=== PATIENT | male | born 1985 | race Caucasian/White ===

== ENCOUNTER 2023-01-23 09:29 | Emergency (ER) | payer OTHER, SELFPAY ==
--- NOTE | ~2023-01-23 | XR_ITS ---
EXAMINATION: XR CHEST CLINICAL INFORMATION: Chest pain. COMPARISON: None available. TECHNIQUE: 2 views of the chest were obtained. FINDINGS: The lungs are well expanded. No focal consolidation. No pleural effusion. Cardiac silhouette is within normal limits. XR/XR chest 2V IMPRESSION: No acute abnormality.
--- NOTE | 2023-01-23 09:30 | ECG_ITS ---
Test Reason : CHEST PAIN Blood Pressure : / mmHG Vent. Rate : 086 BPM Atrial Rate : 086 BPM P-R Int : 140 ms QRS Dur : 088 ms QT Int : 368 ms P-R-T Axes : 072 057 063 degrees QTc Int : 440 ms Normal sinus rhythm Normal ECG No previous ECGs available Referred By: Generic ED Physician Electronically Signed By:Huang Zurita
[2023-01-23 09:45] VITALS: BP 128/85; PULSE 87; RESP 18; TEMP 36.4; O2SAT 96; BMI 23.4
[2023-01-23 09:58] LABS: MANUAL DIFF FLAG NO
[2023-01-23 10:02] LABS: Basophils Absolute Auto 0.1 X10*3/uL (0.0-0.2); Basophils Percent Auto 0.8 % (0-2); Eosinophils Absolute Auto 0.3 X10*3/uL (0.0-0.4); Hematocrit 46.1 % (42.0-52.0); Hemoglobin 15.6 g/dl (14.0-18.0); Imm Gran Abs Auto 0.03 X10*3/uL (0.00-0.03); Imm Gran Pct Auto 0.5 % (0.0-0.4); Lymphocytes Percent Auto 30.6 % (20-40); Mean Corpuscular HGB Conc 33.8 g/dl (31.0-36.0); Mean Corpuscular Hemoglobin 30.1 pg (27.0-33.0); Mean Corpuscular Volume 88.8 fL (80.0-98.0); Mean Platelet Volume 9.3 fL (9.4-12.4); Monocytes Absolute Auto 0.6 X10*3/uL (0.1-1.2); Monocytes Percent Auto 8.8 % (2-11); Neutrophils Absolute Auto 3.6 x10*3/uL (2.0-8.3); Neutrophils Percent Auto 55.3 % (45-73); Platelet Count 242 X10*3/uL (160-400); Red Blood Count 5.19 X10*6/uL (4.60-5.80); Red Cell Distribution Width 11.8 % (11.0-16.0); White Blood Count 6.6 X10*3/uL (4.8-10.8)
[2023-01-23 10:19] LABS: Alanine Aminotransferase 40 U/L (0-40); Albumin Level 4.4 g/dL (3.5-5.0); Alkaline Phosphatase 61 U/L (39-117); Anion Gap 13 (12-20); Aspartate Amino Transferase 25 U/L (5-37); Bilirubin Direct 0.2 mg/dL (0.0-0.5); Bilirubin Total 0.8 mg/dL (0.0-1.0); Blood Urea Nitrogen 10 mg/dL (9-16); Calcium 9.4 mg/dL (8.4-10.2); Carbon Dioxide 29 mmol/L (22-29); Chloride 103 mmol/L (96-108); Creatinine Clr Calc Pharmacy 98.6; Estimated Glomerular Filt Rate > 60; Glucose Random 91 mg/dL (60-115); Lipase 24 U/L (8-78); Potassium 4.4 mmol/L (3.3-5.1); Sodium 141 mmol/L (135-145); Total Protein 7.3 g/dL (6.5-8.0)
[2023-01-23 10:33] LABS: Troponin-I High Sensitivity < 2.7 ng/L (<3.5-35.0)
--- NOTE | 2023-01-23 10:45 | ED.CHESTPAIN ---
HPI - Chest Pain General Chief Complaint: Chest Pain Stated Complaint: Chest pain Time Seen by Provider: 01/23/23 10:30 Source: patient Mode of arrival: ambulatory Limitations: no limitations History of Present Illness HPI narrative: 37-year-old male came in for evaluation of lower chest/epigastric pain started since 01:00 on Monday (2 days ago) patient woke up from sleep due to severe pain, pain is localized to the lower chest with no radiation, no other associated symptoms with pain, no clear aggravating factor or relieving factors, no recent travel, no lower extremity swelling or tenderness, no recent prolonged immobilization. Patient admits to drinking alcohol 3 to 4 times a week and patient drink before the pain started thinks could be acid reflux. Related Data Allergies Allergy/AdvReac Type Severity Reaction Status Date / Time No Known Allergies Allergy Verified 01/23/23 09:47 Review of Systems Review of Systems: All other systems are reviewed and are negative Constitutional: Reports as per HPI and Reports no additional constitutional complaints Eyes: Reports as per HPI and Reports no additional eye complaints Reports system reviewed and no additional complaints, except as documented Cardiovascular: Reports as per HPI and Reports no additional cardiovascular complaints Respiratory: Reports as per HPI and Reports no additional respiratory complaints Gastrointestinal: Reports as per HPI and Reports no additional gastrointestinal complaints Genitourinary: Reports no additional female genitourinary complaints Musculoskeletal: Reports no additional musculoskeletal complaints Skin/Breast: Reports system reviewed and no additional complaints, except as docu Psychiatric: Reports no additional psychiatric complaints Endocrine: Reports no additional endocrine complaints Hematologic/Lymphatic: Reports no additional hematologic/lymphatic complaints Allergic/Immunologic: Reports no additional allergic/immunologic complaints Reports system reviewed and no additional complaints, except as documented and Reports Abnormal speech present [facility] Social History Social History Alcohol intake: current Alcohol intake frequency: holidays/special occasions only Smoked in Last 30 Days: Yes Use of substances other than those prescribed or required for medical reasons: No Advance Directives: No Advance Directives Information Provided: No Physical Exam Vital Signs: Vital Signs: Last Vital Signs Temp 98.3 F 01/23/23 10:47 Pulse 62 01/23/23 10:47 Resp 16 01/23/23 10:47 BP 128/64 01/23/23 10:47 Pulse Ox 100 01/23/23 10:47 O2 Del Method Room Air 01/23/23 10:47 BMI result Body Mass Index 23.4 Vital signs have been reviewed and appear to be correct. Blood pressure elevated. Heart rate normal. Respiratory rate normal. Temperature normal. Oxygen saturation normal. Appearance: Alert. Oriented X3. No acute distress. Head: Normal external exam. Normocephalic. Atraumatic. No Murphy signs noted. No raccoon eyes noted Eyes: PERRLA. EOMI. Conjunctiva and sclera normal. Eyelids normal. ENT: TM's Normal. Pharynx normal. Uvula midline. Moist mucous membranes. No trismus noted. No drooling noted. No muffled voice noted. Neck: Normal inspection. Neck supple. FROM. No adenopathy. Thyroid Normal. No meningeal signs. No neck mass noted. CVS: Normal heart rate and rhythm. Heart sound normal. No murmurs noted. Pulses normal throughout. Respiratory: No respiratory distress. Painless inspiration. Breath sounds normal. No wheezes/rales/rhonchi noted. Chest nontender. No accessory muscle usage noted or decreased air movement noted. Abdomen: Soft and nontender. Bowel sounds normal in all 4 quadrants. No distention noted. No organomegaly noted. No visible injury noted. Back: No CVA tenderness. Full range of motion noted. Skin: Skin warm and dry. Normal skin color. Normal skin turgor. No rashes/lesions/lacerations noted. Extremities: No lower extremity edema. Extremities exhibit normal range of motion. Extremities nontender. Neuro: Oriented X 3. Cranial nerve exam: II-XII are grossly intact No motor deficit. No sensory deficit. Reflexes normal. Course Reevaluation(s) Reevaluation #1: Lower chest/epigastric pain for 2 days after drinking alcohol feels like acid reflux as palpation, patient with HEART score of 0, no risk for PE with negative D-dimer. Otherwise unremarkable workup in the ED. Patient was instructed to stop drinking alcohol. Time: 12:21 Medical Decision Making Differential Diagnosis Differential Diagnoses: The differential diagnosis associated with the presentation includes (Chest pain, ACS, pulmonary embolism, pleural effusion, pneumothorax, severe anemia, electrolyte abnormality.) Admission/Observation Consideration of admission/observation: Escalation of care including admission/observation considered Lab Data MDM Lab Attestation statement: I reviewed the patient's lab results. 01/23/23 09:55 01/23/23 09:55 Labs: Lab Results 01/23/23 01/23/23 Range/Units 09:55 11:51 WBC 6.6 (4.8-10.8) X10*3/uL RBC 5.19 (4.60-5.80) X10*6/uL Hgb 15.6 (14.0-18.0) g/dl Hct 46.1 (42.0-52.0) % MCV 88.8 (80.0-98.0) fL MCH 30.1 (27.0-33.0) pg MCHC 33.8 (31.0-36.0) g/dl RDW 11.8 (11.0-16.0) % Plt Count 242 (160-400) X10*3/uL MPV 9.3 L (9.4-12.4) fL Immature Gran % (Auto) 0.5 H (0.0-0.4) % Neut % (Auto) 55.3 (45-73) % Lymph % (Auto) 30.6 (20-40) % [place] % (Auto) 8.8 (2-11) % Eos % (Auto) 4.0 (0-4) % Baso % (Auto) 0.8 (0-2) % Lymph # (Auto) 2.0 (1.2-4.9) X10*3/uL [place] # (Auto) 0.6 (0.1-1.2) X10*3/uL Eos # (Auto) 0.3 (0.0-0.4) X10*3/uL Baso # (Auto) 0.1 (0.0-0.2) X10*3/uL Abs Immat Gran (auto) 0.03 (0.00-0.03) X10*3/uL Absolute Neuts (auto) 3.6 (2.0-8.3) x10*3/uL Absolute Nucleated RBC 0.000 (0.0-0.012) X10*3/uL Nucleated RBC % (auto) 0.0 (0.0-0.2) /100WBC D-Dimer High Sensitivty < 150 NG/ML Sodium 141 (135-145) mmol/L Potassium 4.4 (3.3-5.1) mmol/L Chloride 103 (96-108) mmol/L Carbon Dioxide 29 (22-29) mmol/L Anion Gap 13 (12-20) BUN 10 (9-16) mg/dL Creatinine 1.17 (0.5-1.4) mg/dL Estim Creat Clear Calc 98.6 Estimated GFR > 60 Random Glucose 91 (60-115) mg/dL Calcium 9.4 (8.4-10.2) mg/dL Total Bilirubin 0.8 (0.0-1.0) mg/dL Direct Bilirubin 0.2 (0.0-0.5) mg/dL AST 25 (5-37) U/L ALT 40 (0-40) U/L Alkaline Phosphatase 61 (39-117) U/L Troponin I High Sens < 2.7 (<3.5-35.0) ng/L Total Protein 7.3 (6.5-8.0) g/dL Albumin 4.4 (3.5-5.0) g/dL Lipase 24 (8-78) U/L Independent Interpretation I performed an independent interpretation of an: EKG (A normal sinus rhythm at 86 beats per minutes, normal axis deviation, normal intervals, no ST-T changes.) and Plain X-Ray (Chest: No acute intrathoracic pathology.) Radiology Impression Discussion of test interpretation with radiology: I have reviewed the radiologist's reading. Discharge Plan Discharge Clinical Impression: Atypical chest pain Patient Disposition: Home, Self-Care Instructions: Chest Pain (ED)
[2023-01-23 10:47] VITALS: BP 128/64; PULSE 62; RESP 16; TEMP 36.8; O2SAT 100
[2023-01-23 12:12] LABS: D Dimer High Sensitivity < 150 NG/ML
[2023-01-23 12:24] LABS: Troponin-I High Sensitivity < 2.7 ng/L (<3.5-35.0)
[2023-01-23 12:45] VITALS: BP 115/81; PULSE 81; RESP 20; O2SAT 98
== END 2023-01-23 12:46 | disposition home or self-care (01) ==
PROVIDERS: Emergency Provider Emergency Medicine
DX: R07.89 Other chest pain (principal)
CPT/HCPCS: 36415; 71046; 80048; 80076; 83690; 84484; 85025; 85379; 93005; 99283; 99285

== ENCOUNTER → 2023-01-23 09:30 | Outpatient (BNV) | payer OTHER, SELFPAY | PROVIDERS: Emergency Provider Emergency Medicine; Visit Provider Internal Medicine Cardiovascular Disease | DX: R07.9 Chest pain, unspecified (principal) | CPT/HCPCS: 93010 ==

== ENCOUNTER 2024-03-27 11:37 | Emergency (ER) | payer OTHER, SELFPAY ==
--- NOTE | ~2024-03-27 | US_ITS ---
EXAMINATION: US SCROTUM CLINICAL INFORMATION: Bilateral testicular pain.. COMPARISON: None available. TECHNIQUE: A sonogram of the scrotum was performed assessing garcía-scale appearance and color Doppler flow. Spectral Doppler analysis of the arterial and venous flow were performed in the testes bilaterally. FINDINGS: RIGHT: Right testicle measures 4.4 x 2.3 x 3.6 cm, volume 18.6 mL. No focal testicular parenchymal lesions are visualized. Spectral Doppler analysis of the arterial and venous flow is normal in the right testis. Right epididymal head is normal in size. There is a small hydrocele present. No varicocele. Right epididymal Doppler flow is normal. LEFT: Left testicle measures 4.6 x 2.3 x 3.7 cm, volume 19.7 mL. No focal testicular parenchymal lesions are visualized. Spectral Doppler analysis of the arterial and venous flow is normal in the left testis. Left epididymal head is normal in size. There is a small left epididymal head cyst measuring 4 x 3 x 5 mm. There is a small left hydrocele. No varicocele. Left epididymal Doppler flow is normal. US/US scrotum IMPRESSION: 1. The testicles and epididymides are normal. There is no torsion or evidence of orchitis/epididymitis. 2. There are small bilateral hydroceles. Electronically signed by: Atul Bowen MD 03/27/2024 01:37 PM [facility]
--- NOTE | ~2024-03-27 | US_ITS ---
EXAMINATION: US SCROTUM CLINICAL INFORMATION: Bilateral testicular pain.. COMPARISON: None available. TECHNIQUE: A sonogram of the scrotum was performed assessing garcía-scale appearance and color Doppler flow. Spectral Doppler analysis of the arterial and venous flow were performed in the testes bilaterally. FINDINGS: RIGHT: Right testicle measures 4.4 x 2.3 x 3.6 cm, volume 18.6 mL. No focal testicular parenchymal lesions are visualized. Spectral Doppler analysis of the arterial and venous flow is normal in the right testis. Right epididymal head is normal in size. There is a small hydrocele present. No varicocele. Right epididymal Doppler flow is normal. LEFT: Left testicle measures 4.6 x 2.3 x 3.7 cm, volume 19.7 mL. No focal testicular parenchymal lesions are visualized. Spectral Doppler analysis of the arterial and venous flow is normal in the left testis. Left epididymal head is normal in size. There is a small left epididymal head cyst measuring 4 x 3 x 5 mm. There is a small left hydrocele. No varicocele. Left epididymal Doppler flow is normal. US/US scrotum doppler IMPRESSION: 1. The testicles and epididymides are normal. There is no torsion or evidence of orchitis/epididymitis. 2. There are small bilateral hydroceles. Electronically signed by: Atul Bowen MD 03/27/2024 01:37 PM [facility]
[2024-03-27 11:56] VITALS: BP 133/88; PULSE 78; RESP 20; TEMP 36.4; O2SAT 99; BMI 24.6
--- NOTE | 2024-03-27 11:57 | ED_ITS ---
HPI - Male Genitourinary General Chief complaint: Urogenital-Male Stated complaint: Groin Pain Related Data Allergies Allergy/AdvReac Type Severity Reaction Status Date / Time No Known Allergies Allergy Verified 03/27/24 11:58 [facility] Social History Social History Alcohol intake: current Alcohol intake frequency: holidays/special occasions only Physical Exam Vital Signs: Vital Signs: Last Vital Signs Temp 97.8 F 03/27/24 18:22 Pulse 73 03/27/24 18:22 Resp 20 03/27/24 18:22 BP 127/77 03/27/24 18:22 Pulse Ox 99 03/27/24 18:22 O2 Del Method Room Air 03/27/24 18:22 BMI result Body Mass Index 24.6 Course Course Course Narrative: This is a Rapid Medical Exam performed in triage by Lindy Snow PA-C. Full HPI, ROS and PE to be performed by primary ED provider. 38-year-old male presenting to the ED c/o bilateral groin pain x yesterday. denies injury, swelling testicular pain/swelling PE: Abdomen soft/nontender Plan: UA, CT NG, ultrasound Medications Administered Discontinued Medications Generic Name Dose Route Start Last Admin Trade Name Freq PRN Reason Stop Dose Admin Ibuprofen 600 mg 03/27/24 18:20 03/27/24 18:24 Ibuprofen 600 Mg Tablet PO 03/27/24 18:21 600 mg ONCE ONE Administration Medical Decision Making Lab Data Labs: Lab Results 03/27/24 Range/Units 17:10 Urine Color Dark Yellow Urine Appearance Clear Urine pH 5.5 (5.0-9.0) Ur Specific [place] >= 1.030 H (1.005-1.025) Urine Protein Trace (Neg-Trace) mg/dL Urine Glucose (UA) Negative (Negative) mg/dL Urine Ketones Trace (Negative) mg/dL Urine Blood Negative (Negative) Urine Nitrite Negative (Negative) Ur Leukocyte Esterase Negative (Negative) Chlam trachomat DNA PCR NOT DETECTED (Not Detect.) N.gonorrhoeae DNA (PCR) NOT DETECTED (Not Detect.) Discharge Plan Discharge Clinical Impression: Groin pain Patient Disposition: Left W/O Completing Treatment Discharge Date/Time: 03/27/24 20:10
[2024-03-27 17:28] LABS: Appearance Urine Clear; Color Urine Dark Yellow; Glucose Urine UA Negative (Negative); Leukocyte Esterase Urine Negative (Negative); Nitrite Urine Negative (Negative); PH 5.5 (5.0-9.0); Specific Gravity - Urine >= 1.030 (1.005-1.025); Urine Blood Negative (Negative); Urine Ketones Trace mg/dL (Negative); Urine Protein Trace mg/dL (Neg-Trace)
[2024-03-27 18:22] VITALS: BP 127/77; PULSE 73; RESP 20; TEMP 36.6; O2SAT 99
[2024-03-27] MEDS: Ibuprofen 600 MG TABLET PO (18:24)
[2024-03-28 06:31] LABS: CT PCR NOT DETECTED (Not Detect.); NG PCR NOT DETECTED (Not Detect.)
== END 2024-03-27 20:10 | disposition left against medical advice (07) ==
PROVIDERS: Emergency Provider Emergency Medicine
DX: R10.30 Lower abdominal pain, unspecified (principal); R10.2 Pelvic and perineal pain; N50.812 Left testicular pain; N50.811 Right testicular pain; Z79.899 Other long term (current) drug therapy
CPT/HCPCS: 76870; 81003; 87491; 87591; 93975; 99283; 99284

== ENCOUNTER → 2024-03-27 11:58 | Outpatient (BNV) | payer OTHER, SELFPAY | PROVIDERS: Visit Provider Radiology Diagnostic Radiology | DX: N43.0 Encysted hydrocele (principal); N50.3 Cyst of epididymis | CPT/HCPCS: 76870; 93976 ==

== ENCOUNTER 2024-04-10 11:13 | Outpatient (AMB) | payer OTHER, SELFPAY ==
[2024-04-10 12:01] VITALS: BP 136/80; PULSE 93; O2SAT 97
--- NOTE | 2024-04-10 12:01 | AM.OFFWIN_ITS ---
Intake Vital Signs 04/10/24 12:01 Weight 189 lb BP 136/80 Blood Pressure Location Rt brachial Position Sitting Pulse 93 Pulse Source Pulse Oximeter Pulse Oximetry (%) 97 Oxygen Delivery Method Room Air Intake Visit Reasons: EP Pain in groin Intake Note: Patient here for pain in groin area that has been present for almost 2 weeks. Patient Tobacco Use Status: Current everyday Tobacco user Allergies No Known Allergies Allergy (Verified 04/10/24 12:02) Do you need a note to return to daycare/school/sports/work: Yes HPI HPI Comments History of Present Illness Details History of Present Illness - The patient is a 38-year-old male pres enting with bilateral groin pain. - The pain began approximately two weeks ago and is localized to the bilateral groin areas with predominance in the left side, extending to the hip. pain does not radiate into his legs other down the front or the back. 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 - Previous emergency department visit re sulted in negative testing for infections, testicular torsion and no definitive diagnosis as he left before receiving full treatment. - denies testicular pain, fever, nause a vomiting diarrhea. - Extensive walking due to occupational requirements exacerbates the pain. Physical Exam General: Cooperative, healthy appearing, comfortable, no acute distress and well developed Orientation: Patient oriented x3 Limitations: No limitations Head: Normal to inspection Ears: Hearing grossly normal bilaterally Nose: Normal external nose present Face and sinus: Normal facial exam Eyes: Appearance normal, both eyes and all related structures Neck: Normal visual inspection and Yes full ROM Respiratory: Normal respiratory effort and able to speak in complete sentences. : bilateral groin, no evidence hernia, Skin: No rashes or lesions noted Neuro: Patient oriented x3 Extremities: Full range of motion with the hip, no skin changes PFSH Social History Alcohol intake: current Alcohol intake frequency: holidays/special occasions only Patient Tobacco Use Status: Current everyday Tobacco user Review of Systems Const All systems reviewed & are unremarkable except as noted in HPI and below Physical Exam Vital Signs: Last Vital Signs Pulse 93 04/10/24 12:01 BP 136/80 04/10/24 12:01 Pulse Ox 97 04/10/24 12:01 Oxygen Delivery Method Room Air 04/10/24 12:01 Assessment & Plan Assessment & Plan (1) Left groin pain: Code(s): R10.32 - Left lower quadrant pain Plan: Consideration for a CT scan of the abdomen and pelvis is advisable to further assess the bilateral (left>right) groin pain since physical examination today did not demonstrate findings consistent with hernia. The patient went to the emergency department 2 weeks ago but left before he had a full assessment and plan. He did get an ultrasound which was negative for testicular torsion. He did have a urinalysis which was negative and he was also negative for gonorrhea and chlamydia. Recommended as his pain is worsening that he go to the emergency department for a thorough evaluation. Patient is unsure which emergency department he will go to so I am unable to call an expect. He is very concerned about the wait times in the emergency department. He will go, he is just unsure which one he wants to go to. Patient was informed and verbally consented to the use of an ambient scribe for clinic note documentation during this visit. Coding Level of Care Code New Pt Level 4 (10514) Diagnoses Left groin pain R10.32
== END 2024-04-10 12:52 | disposition home or self-care (01) ==
PROVIDERS: Visit Provider Physician Assistant
DX: R10.32 Left lower quadrant pain (principal)

== ENCOUNTER 2024-07-02 12:42 | Outpatient (AMB) | payer OTHER, SELFPAY ==
[2024-07-02 12:56] VITALS: BP 120/76; PULSE 96; RESP 18; TEMP 36.9; O2SAT 96; BMI 24.2
--- NOTE | 2024-07-02 12:56 | MHC.PC.OV ---
Vital Signs 07/02/24 12:56 Height 6 ft 1 in Weight 183 lb 12.8 oz BMI 24.2 BP 120/76 Blood Pressure Location Lt brachial Position Sitting Respiration 18 Pulse 96 Pulse Source Pulse Oximeter Temp 98.5 F Temp Source Oral Pulse Oximetry (%) 96 Oxygen Delivery Method Room Air Intake Visit Reasons: establish care Intake Note: Patient is a new patient here to establish care. Transferring care from [facility] in [place], [place]. Medical records have not been requested and have not been received. Patient reports that he has not had a primary care physician in over 10 years; seen at area emergency departments and urgent care facilities for medical care. [employer] Supervisor Required: No Accompanied by: Self / Same As Patient Allergies No Known Allergies Allergy (Verified 07/02/24 13:19) Medication List - Last Reconciled 07/02/24 by JUHI Argueta acetaminophen (Tylenol) 975 mg PO Q6H PRN ibuprofen 800 mg PO Q6H Tobacco use date assessed: 07/02/24 Dental Screening Dental Screen Date: 07/02/24 Did you have a dental visit in the last 12 months?: Yes Did you have a dental problem in the last 6 months where you did not have access to dental care?: No Was dental information given to patient?: Patient has dentist HPI establish care HPI Details Previous PCP:[facility] in [place] Last visit: over 10 years Last PE: a while ago Specialist: no OBGYN:n/a Past medical history: asthma as a kid, allergy all year and antihistamine otc Medications:n/a Family HX: Problem: The patient is a 38-year-old male presenting with chronic left groin pain, which began approximately five months ago following a slip on ice that resulted in an injury. Despite an ER visit that included a CT scan and ultrasound, no significant injuries were identified. He was treated with muscle relaxers but continues to experience disabling pain primarily during humid weather. He manages his symptoms with [id number] ibuprofen and acetaminophen. The patient also has a background of childhood asthma, now resolved, and current year-round allergic rhinitis managed with antihistamines. There is no reported swelling in the affected area, but mobility is notably impaired during pain flares. Reports that he was given muscle relaxer and was told that he probably torn a muscle. However, he continue to have the same pain. His muscle relaxer ran out 3 months ago. Plans to have oral surgery to replaced his teeth with dentures He has cut back on drinking and is working on cutting down on the amount cigarettes he smokes, he is doing 5/day on average [facility] Medical History (Updated 07/02/24 @ 14:38 by JUHI Argueta) Allergic rhinitis Asthma Multiple skin tags Surgical History (Updated 07/02/24 @ 13:08 by Lesa De La Garza CMA) History of surgery on lower extremity Family History (Updated 07/02/24 @ 13:11 by Lesa De La Garza CMA) Mother Heart attack Stroke Diabetes Sleep apnea Father No problems noted. Other FH: mental illness Family history of substance abuse Social History (Updated 07/02/24 @ 13:13 by Lesa De La Garza CMA) Household Members: Significant Other Housing: Apartment Alcohol intake: current Alcohol intake frequency: a few times a month Alcohol type: beer Patient Tobacco Use Status: Current everyday Tobacco user Tobacco use type: Cigarette Cigarette Packs Per Day: 0.25 Cigarettes Per Day: 5 Years Smoked: 15 e-Cigarette/Vaping Use: Currently Using service: No Current occupational status: employed Cognitive needs: No Hearing needs: No Vision needs: No Questionnaire PHQ-9 Over the last 2 weeks, how often have you been bothered by any of the following problems? 1. Little interest or pleasure in doing things: not at all 2. Feeling down, depressed, or hopeless: not at all 3. Trouble falling or staying asleep, or sleeping too much: not at all 4. Feeling tired or having little energy: several days 5. Poor appetite or overeating: several days 6. Feeling bad about yourself - or that you are a failure or have let yourself or your family down: not at all 7. Trouble concentrating on things, such as reading the newspaper or watching television: not at all 8. Moving or speaking so slowly that other people could have noticed. Or the opposite - being so fidgety or restless that you have been moving around a lot more than usual: not at all 9. Thoughts that you would be better off or of hurting yourself in some way: not at all Total score: 2 Depression Screening Interpretation: Negative Depression Screening Done: Yes 99206 - PHQ-9 Billing: Yes Source: Developed by Drs. Garfield Cristina, Quiana Bazan, Salbador Sesay and colleagues, with an educational diya from [employer]. Thrive Questionnaire Date Thrive assessed: 07/02/24 I am a: Patient What is your living situation today?: I have a steady place to live Within the past 12 months, did the food you bought not last and you didn't have the money to get more?: Never true Within the past 12 months, did you worry whether your food would run out before you got money to buy more?: Never true Do you have trouble paying for medicines?: No Do you have trouble getting transportation to medical appointments?: No Do you have trouble paying your heating and electricity bill?: No Do you have trouble taking care of your child, family member or friend?: No Do you have trouble with day-to-day activities such as bathing, preparing meals, shopping, managing finances, etc.?: No Are you currently unemployed and looking for a job?: No Are you interested in more education?: No Please select the resources that you would like help with: None Currently or been in a relationship where the following occur: No concerns reported THRIVE Score: 0 AUDIT C Alcohol Use Questionnaire (AUDIT-C) 1. How often do you have a drink containing alcohol?: 2-4 times a month 2. How many drinks containing alcohol do you have on a typical day when you are drinking?: 5 or 6 3. How often do you have six or more drinks on one occasion?: Less than monthly Total Score: 5 Score Reviewed/Action Taken: Yes NEETU-7 AMB Questionnaire NEETU-7 Date NEETU - 7 assessed: 07/02/24 Feeling nervous, anxious, or on edge: 0 = Not at all Not being able to stop or control worryin = Not at all Worrying too much about different things: 0 = Not at all Trouble relaxin = Not at all Being so restless that it is hard to sit still: 0 = Not at all Becoming easily annoyed or irritable: 0 = Not at all Feeling afraid as if something awful might happen: 0 = Not at all Total NEETU-7 score (0-4 normal; 5-9 mild; 10-14 moderate; 15-21 severe): 0 Source: Developed by Drs. Garfield Cristina, Quiana Bazan, Salbador Sesay and colleagues, with an educational diya from [employer]. NEETU-7 Assessment Billing NEETU-7 Assessment Tool: NEETU-7 Assessment 95639 Review of Systems Const Denies headache(s) Eyes Denies loss of vision ENT Denies vertigo, Denies dizziness, Denies headache(s) and Denies sore throat Card Denies chest pain, Denies leg edema and Denies lightheadedness Resp Denies cough, Denies hemoptysis and Denies wheezing GI Denies abdominal pain, Denies melena, Denies constipation, Denies diarrhea and Denies vomiting Denies dysuria, Denies urinary frequency, Denies urinary urgency and Reports other (left groin pain) Musc Denies arthralgias, Denies joint swelling, Denies numbness and Denies tingling Skin/Breast Reports lesions (multiple skin tags) Neuro Denies Abnormal speech present, Denies behavioral changes, Denies vertigo, Denies dizziness, Denies headache(s), Denies loss of vision, Denies memory loss, Denies numbness and Denies tingling Psych Denies anxiety, Denies behavioral changes, Denies depression, Denies memory loss and Denies panic attacks Burke/Lymph Denies easy bleeding and Denies easy bruising Aller/Immun Denies wheezing Physical exam (Primary Care) Vital Signs: Last Vital Signs Temp 98.5 F 07/02/24 12:56 Pulse 96 07/02/24 12:56 Resp 18 07/02/24 12:56 BP 120/76 07/02/24 12:56 Pulse Ox 96 07/02/24 12:56 Oxygen Delivery Method Room Air 07/02/24 12:56 BMI result Body Mass Index 24.2 Tobacco/Smoking Status: Tobacco use Status Tobacco use date assessed 07/02/24 07/02/24 13:15 Patient Tobacco Use Status Current everyday Tobacco 07/02/24 13:15 Tobacco use type Cigarette 07/02/24 13:15 e-Cigarette/Vaping Use Currently Using 07/02/24 13:15 PHQ-9: PHQ-9 Score PHQ-9: Total score 2 07/02/24 13:15 Depression Screening Interpretation: Negative Thrive Assessment: Date of Thrive Assessment Date Thrive assessed 07/02/24 07/02/24 13:15 Currently or been in a relationship where the following occur: No concerns reported Const General: healthy appearing, no acute distress, alert and awake Nutritional Appearance: well nourished Orientation/consciousness: oriented to person, oriented to place and oriented to time HENMT Ears: TM's normal bilaterally General nose exam: Abnormal mucous membranes and turbinates present erythematous Eyes Conjunctivae: conjunctivae normal Sclerae: sclerae normal Pupils: Equal, round and reactive pupils present Neck Neck: Yes no lymphadenopathy and Yes no JVD Thyroid: Thyroid normal Carotids: no bruits Resp Effort & Inspection: normal respiratory effort and not tachypneic Auscultation: no crackles, no rales, no rhonchi and no wheezes Cardio Rate: regular rate Rhythm: regular rhythm Heart sounds: no murmurs and normal S1 and S2 GI Palpation (GI): Soft to palpation, nontender, no hepatomegaly and no splenomegaly Auscultation: normal bowel sounds Skin General skin exam: dry skin and other (multiple flesh colored skin tags) Neuro General: oriented to person, oriented to place and oriented to time Cranial nerves: Yes Equal, round and reactive pupils present Speech: No Abnormal speech present Gait exam (Neuro): Normal gait present Extrem Right upper extremity: full ROM Left upper extremity: full ROM Right lower extremity: full ROM; no edema Left lower extremity: full ROM; no edema Psych Mental Status: mental status grossly normal Speech and movement: Normal speech and movement present Affect: normal affect Attitude: cooperative Thought process: Normal thought process present Coding Level of Care Code New Pt Level 4 (92397) Diagnoses Non-seasonal allergic rhinitis, unspecified trigger J30.89 Allergic rhinitis trigger: unspecified Allergic rhinitis seasonality: non-seasonal Smoker F17.200 Additional Codes NEETU-7 Assessment Billing - NEETU-7 Assessment Tool: NEETU-7 Assessment 63081 ([id number]) PHQ-9 - 90107 - PHQ-9 Billing: Yes ([id number]) Time Spent (min) 39 Assessment & Plan Assessment & Plan (1) Allergic rhinitis: Code(s): J30.9 - Allergic rhinitis, unspecified Category: Medical Qualifiers: Allergic rhinitis trigger: unspecified Allergic rhinitis seasonality: non-seasonal Qualified Code(s): J30.89 - Other allergic rhinitis (2) Smoker: Code(s): F17.200 - Nicotine dependence, unspecified, uncomplicated Category: Social Hx Plan The patient and I developed a comprehensive plan that includes tailored use of cyclobenzaprine and OTC analgesics for managing chronic left groin pain, and referral to physical therapy for long-term rehabilitation strategies. Allergy symptom management will involve alternating between different antihistamines to prevent desensitization. Routine labs have been ordered to evaluate general health metrics. Due to the potential adverse effects, heavy reliance on analgesics is discouraged. Smoking cessation was highlighted with recent lifestyle adjustments. Dermatology consult for skin tags evaluation is planned. Overall, the discussed management approach aims to address the persistent musculoskeletal discomfort while incorporating preventive health strategies. Patient was informed and verbally consented to the use of an ambient scribe for clinic note documentation during this visit. Orders: Orders Complete Blood Count Auto Diff Today Z00.00 - Encounter for general adult medical examination without abnormal findings Comprehensive [place]. Panel Fast Today Z00.00 - Encounter for general adult medical examination without abnormal findings UA CC w/rflx Micro + Cult Today Z00.00 - Encounter for general adult medical examination without abnormal findings TSH reflex Free T4 Today Z00.00 - Encounter for general adult medical examination without abnormal findings Vitamin D 25-OH Total Today Z00.00 - Encounter for general adult medical examination without abnormal findings Lipid Panel Today Z00.00 - Encounter for general adult medical examination without abnormal findings Glucose Fasting Today Z00.00 - Encounter for general adult medical examination without abnormal findings PT Evaluation and Treatment Today R10.32 - Left lower quadrant pain Referrals Dermatology Referral L91.8 - Other hypertrophic disorders of the skin Medications: New fluticasone propionate 50 mcg/actuation administer into each nostril 2 sprays intranasal BID 30 days 16 grams 2RF cyclobenzaprine 5 mg PO BID PRN 30 tabs 3RF muscle spasm Patient Instructions: The patient to return in 6 weeks for annual physical. Pre-scheduled labs ordered for the patient to complete prior to appointment.
== END 2024-07-02 13:55 | disposition home or self-care (01) ==
LOC: HO.HMCH 12:43
DX: J30.89 Other allergic rhinitis (principal); F17.200 Nicotine dependence, unspecified, uncomplicated

== ENCOUNTER → 2024-07-02 12:42 | Outpatient (BNVA) | payer OTHER, SELFPAY | DX: R10.32 Left lower quadrant pain (principal); J30.89 Other allergic rhinitis; F17.210 Nicotine dependence, cigarettes, uncomplicated | CPT/HCPCS: 96127 ==

== ENCOUNTER 2024-07-03 08:27 | Outpatient (REF) | payer OTHER, SELFPAY ==
[2024-07-03 09:01] LABS: MANUAL DIFF FLAG NO
[2024-07-03 09:50] LABS: Basophils Percent Auto 0.7 % (0-2); Eosinophils Absolute Auto 0.3 X10*3/uL (0.0-0.4); Eosinophils Percent Auto 4.4 % (0-4); Hematocrit 49.9 % (42.0-52.0); Hemoglobin 16.7 g/dl (14.0-18.0); Imm Gran Abs Auto 0.03 X10*3/uL (0.00-0.03); Imm Gran Pct Auto 0.5 % (0.0-0.4); Lymphocytes Absolute Auto 1.8 X10*3/uL (1.2-4.9); Lymphocytes Percent Auto 30.6 % (20-40); Mean Corpuscular HGB Conc 33.5 g/dl (31.0-36.0); Mean Corpuscular Volume 89.6 fL (80.0-98.0); Mean Platelet Volume 10.4 fL (9.4-12.4); Monocytes Absolute Auto 0.5 X10*3/uL (0.1-1.2); Monocytes Percent Auto 8.4 % (2-11); Neutrophils Absolute Auto 3.3 x10*3/uL (2.0-8.3); Neutrophils Percent Auto 55.4 % (45-73); Platelet Count 234 X10*3/uL (160-400); Red Blood Count 5.57 X10*6/uL (4.60-5.80); Red Cell Distribution Width 12.3 % (11.0-16.0); White Blood Count 5.9 X10*3/uL (4.8-10.8)
[2024-07-03 11:43] LABS: Alanine Aminotransferase 103 U/L (0-40); Albumin Level 4.1 g/dL (3.5-5.0); Alkaline Phosphatase 47 U/L (39-117); Anion Gap 8 (12-20); Aspartate Amino Transferase 45 U/L (5-37); Blood Urea Nitrogen 9 mg/dL (9-16); Calcium 8.8 mg/dL (8.4-10.2); Carbon Dioxide 28 mmol/L (22-29); Chloride 108 mmol/L (96-108); Cholesterol 172 mg/dL (<200); Estimated Glomerular Filt Rate > 60; Glucose Fasting 118 mg/dL (60-99); HDL Cholesterol 40 mg/dL (>40); LDL Cholesterol Calculated 110 mg/dL (<100); Potassium 4.3 mmol/L (3.3-5.1); Sodium 140 mmol/L (135-145); Total Protein 6.4 g/dL (6.5-8.0); Triglycerides 114 mg/dL (<150)
[2024-07-03 12:00] LABS: TSH reflex Free T4 0.92 uIU/mL (0.32-4.0); Vitamin D 25-OH Total 13.5 ng/mL (>30)
== END 2024-07-03 08:28 | disposition home or self-care (01) ==
LOC: HO.LAB 08:27
DX: Z00.00 Encounter for general adult medical examination without abnormal findings (principal)
CPT/HCPCS: 36415; 80053; 80061; 82306; 84443; 85025

== ENCOUNTER 2024-08-14 09:28 | Outpatient (AMB) | payer OTHER, SELFPAY ==
[2024-08-14 09:45] VITALS: BP 132/88; PULSE 83; RESP 18; TEMP 36.4; O2SAT 99; BMI 24.7
--- NOTE | 2024-08-14 09:45 | A.OFFPC_ITS ---
Vital Signs 08/14/24 09:45 Height 6 ft 1 in Weight 187 lb 6 oz BMI 24.7 BP 132/88 Blood Pressure Location Lt brachial Position Sitting Respiration 18 Pulse 83 Pulse Source Pulse Oximeter Temp 97.5 F Temp Source Temporal Artery Scan Pulse Oximetry (%) 99 Oxygen Delivery Method Room Air Intake Visit Reasons: Annual Exam Allergies No Known Allergies Allergy (Verified 08/14/24 10:29) Medication List - Last Reconciled 08/14/24 by JUHI Argueta acetaminophen (Tylenol) 975 mg PO Q6H PRN cetirizine (Zyrtec) 10 mg PO DAILY PRN cyclobenzaprine 5 mg PO BID PRN fluticasone propionate 50 mcg/actuation 2 sprays intranasal BID 30 days ibuprofen 800 mg PO Q6H Tobacco use date assessed: 08/14/24 Dental Screening Dental Screen Date: 08/14/24 Did you have a dental visit in the last 12 months?: Yes Did you have a dental problem in the last 6 months where you did not have access to dental care?: No Was dental information given to patient?: Patient has dentist HPI Annual Exam HPI Details Patient is presenting for annual physical Dentist: up to date Eye:not in a while Snellen: Right: Left: Corrected vision: STI screening: Colonoscopy: Pap Smer: PHQ-9: Flu:he gets the vaccines intermittently COVID: x2 Tdap:due, will take today in office Diet: regular Exercise:he play sports, pretty active Only complaint was his ongoing left groin pain. Reports that his left groin is throbbing on and off The patient reports taking Tylenol and ibuprofen often to decrease the pain Patient Tylenol was discontinued due to elevated liver enzymes. Gabapentin 100 mg t.i.d. p.r.n. was ordered The patient to continue muscle relaxer PFS Medical History Allergic rhinitis Asthma Multiple skin tags Surgical History History of surgery on lower extremity Family History Mother Heart attack Stroke Diabetes Sleep apnea Father No problems noted. Other FH: mental illness Family history of substance abuse Social History Household Members: Significant Other Housing: Apartment Alcohol intake: current Alcohol intake frequency: a few times a month Alcohol type: beer Patient Tobacco Use Status: Current everyday Tobacco user Tobacco use type: Cigarette Cigarette Packs Per Day: 0.25 Cigarettes Per Day: 5 Years Smoked: 15 e-Cigarette/Vaping Use: Currently Using service: No Current occupational status: employed Cognitive needs: No Hearing needs: No Vision needs: No Questionnaire PHQ-9 Over the last 2 weeks, how often have you been bothered by any of the following problems? 1. Little interest or pleasure in doing things: not at all 2. Feeling down, depressed, or hopeless: not at all 3. Trouble falling or staying asleep, or sleeping too much: not at all 4. Feeling tired or having little energy: several days 5. Poor appetite or overeating: several days 6. Feeling bad about yourself - or that you are a failure or have let yourself or your family down: not at all 7. Trouble concentrating on things, such as reading the newspaper or watching television: not at all 8. Moving or speaking so slowly that other people could have noticed. Or the opposite - being so fidgety or restless that you have been moving around a lot more than usual: not at all 9. Thoughts that you would be better off or of hurting yourself in some way: not at all Total score: 2 Depression Screening Interpretation: Negative Depression Screening Done: Yes Source: Developed by Drs. Garfield Cristina, Quiana Bazan, Salbador Sesay and colleagues, with an educational diya from [employer]. Thrive Questionnaire Date Thrive assessed: 06/30/24 I am a: Patient What is your living situation today?: I have a steady place to live Within the past 12 months, did the food you bought not last and you didn't have the money to get more?: Never true Within the past 12 months, did you worry whether your food would run out before you got money to buy more?: Never true Do you have trouble paying for medicines?: No Do you have trouble getting transportation to medical appointments?: No Do you have trouble paying your heating and electricity bill?: No Do you have trouble taking care of your child, family member or friend?: No Do you have trouble with day-to-day activities such as bathing, preparing meals, shopping, managing finances, etc.?: No Are you currently unemployed and looking for a job?: No Are you interested in more education?: No Please select the resources that you would like help with: None Currently or been in a relationship where the following occur: No concerns reported THRIVE Score: 0 AUDIT C Alcohol Use Questionnaire (AUDIT-C) 1. How often do you have a drink containing alcohol?: 2-4 times a month 2. How many drinks containing alcohol do you have on a typical day when you are drinking?: 5 or 6 3. How often do you have six or more drinks on one occasion?: Less than monthly Total Score: 5 Score Reviewed/Action Taken: Yes NEETU-7 AMB Questionnaire NEETU-7 Date NEETU - 7 assessed: 07/02/24 Feeling nervous, anxious, or on edge: 0 = Not at all Not being able to stop or control worryin = Not at all Worrying too much about different things: 0 = Not at all Trouble relaxin = Not at all Being so restless that it is hard to sit still: 0 = Not at all Becoming easily annoyed or irritable: 0 = Not at all Feeling afraid as if something awful might happen: 0 = Not at all Total NEETU-7 score (0-4 normal; 5-9 mild; 10-14 moderate; 15-21 severe): 0 Source: Developed by Drs. Garfield Cristina, Quiana Bazan, Salbador Sesay and colleagues, with an educational diya from [employer]. Review of Systems Const Denies headache(s) Eyes Denies loss of vision ENT Denies vertigo, Denies dizziness, Denies headache(s) and Denies sore throat Card Denies chest pain, Denies leg edema and Denies lightheadedness Resp Denies cough, Denies hemoptysis and Denies wheezing GI Denies abdominal pain, Denies melena, Denies constipation, Denies diarrhea and Denies vomiting Denies dysuria, Denies urinary frequency, Denies urinary urgency and Reports other (Complain of left groin discomfort) Musc Denies arthralgias, Denies joint swelling, Denies numbness and Denies tingling Skin/Breast Reports lesions (Multiple skin tags) Neuro Denies Abnormal speech present, Denies behavioral changes, Denies vertigo, Denies dizziness, Denies headache(s), Denies loss of vision, Denies memory loss, Denies numbness and Denies tingling Psych Denies anxiety, Denies behavioral changes, Denies depression, Denies memory loss and Denies panic attacks Burke/Lymph Denies easy bleeding and Denies easy bruising Aller/Immun Denies wheezing Physical exam (Primary Care) Vital Signs: Last Vital Signs Temp 97.5 F 08/14/24 09:45 Pulse 83 08/14/24 09:45 Resp 18 08/14/24 09:45 BP 132/88 08/14/24 09:45 Pulse Ox 99 08/14/24 09:45 Oxygen Delivery Method Room Air 08/14/24 09:45 BMI result Body Mass Index 24.7 Tobacco/Smoking Status: Tobacco use Status Tobacco use date assessed 08/14/24 08/14/24 09:47 Patient Tobacco Use Status Current everyday Tobacco 08/14/24 09:47 Tobacco use type Cigarette 08/14/24 09:47 e-Cigarette/Vaping Use Currently Using 08/14/24 09:47 PHQ-9: PHQ-9 Score PHQ-9: Total score 2 08/14/24 10:32 Depression Screening Interpretation: Negative Thrive Assessment: Date of Thrive Assessment Date Thrive assessed 06/30/24 08/14/24 09:47 Currently or been in a relationship where the following occur: No concerns reported Const General: healthy appearing, no acute distress, alert and awake Nutritional Appearance: well nourished Orientation/consciousness: oriented to person, oriented to place and oriented to time [facility] Ears: TM's normal bilaterally General nose exam: Normal nasal mucous membranes and turbinates present Eyes Conjunctivae: conjunctivae normal Sclerae: sclerae normal Pupils: Equal, round and reactive pupils present Neck Neck: Yes no lymphadenopathy and Yes no JVD Thyroid: Thyroid normal Carotids: no bruits Resp Effort & Inspection: normal respiratory effort and not tachypneic Auscultation: no crackles, no rales, no rhonchi and no wheezes Cardio Rate: regular rate Rhythm: regular rhythm Heart sounds: no murmurs and normal S1 and S2 GI Palpation (GI): Soft to palpation, nontender, no hepatomegaly and no splenomegaly Auscultation: normal bowel sounds General: Yes no CVA tenderness Male General Exam: Yes normal external exam, No hernia and No inguinal lymphadenopathy Back/Spine/Pelvis Back: no CVA tenderness Skin General skin exam: dry skin Lesions: lesion noted (Multiple flesh colored skin tags to back area) Neuro General: oriented to person, oriented to place and oriented to time Cranial nerves: Yes Equal, round and reactive pupils present Speech: No Abnormal speech present Gait exam (Neuro): Normal gait present Motor exam (neuro): no tremor noted Extrem Right upper extremity: full ROM Left upper extremity: full ROM Right lower extremity: full ROM; no edema Left lower extremity: full ROM; no edema Psych Mental Status: mental status grossly normal Speech and movement: Normal speech and movement present Affect: normal affect Attitude: cooperative Thought process: Normal thought process present Results Reviewed Results Reviewed: Laboratory Tests 07/03/24 08:57 WBC 5.9 RBC 5.57 Hgb 16.7 Hct 49.9 MCV 89.6 MCH 30.0 MCHC 33.5 RDW 12.3 Plt Count 234 MPV 10.4 Immature Gran % (Auto) 0.5 H Neut % (Auto) 55.4 Lymph % (Auto) 30.6 [place] % (Auto) 8.4 Sodium 140 Potassium 4.3 Chloride 108 Carbon Dioxide 28 Anion Gap 8 L BUN 9 Creatinine 0.80 Estimated GFR > 60 Fasting Glucose 118 H Calcium 8.8 D Total Bilirubin 1.0 AST 45 H ALT 103 H Alkaline Phosphatase 47 Total Protein 6.4 L Albumin 4.1 Triglycerides 114 Cholesterol 172 LDL Cholesterol, Calc 110 H HDL Cholesterol 40 L 25-OH Vitamin D Total 13.5 L TSH 0.92 Coding Level of Care Code Est Pt Prev Care 18-39y(24735) Diagnoses Annual physical exam Z00.00 Pure hypercholesterolemia E78.00 Hyperlipidemia type: pure hypercholesterolemia Vitamin D deficiency E55.9 Non-seasonal allergic rhinitis, unspecified trigger J30.89 Allergic rhinitis trigger: unspecified Allergic rhinitis seasonality: non-seasonal Elevated liver enzymes R74.8 Left groin pain R10.32 Multiple skin tags L91.8 Smoker F17.200 Impaired fasting glucose R73.01 Time Spent (min) 38 Assessment & Plan Assessment & Plan (1) Annual physical exam: Code(s): Z00.00 - Encounter for general adult medical examination without abnormal findings Category: Medical Plan: Preventative guidelines and previous labs reviewed with the patient. Patient is up-to-date on dental exam but have not had an eye exam in a while. He his also not up-to-date on most vaccine. Tetanus shot due today, declined. (2) HLD (hyperlipidemia): Code(s): E78.5 - Hyperlipidemia, unspecified Category: Medical Qualifiers: Hyperlipidemia type: pure hypercholesterolemia Qualified Code(s): E78.00 - Pure hypercholesterolemia, unspecified Plan: Triglycerides 114, total cholesterol 172, LDL 110 and HDL 40 Discussed lifestyle modifications including dietary changes and physical activity We will recheck lipid panel in 3 months (3) Vitamin D deficiency: Code(s): E55.9 - Vitamin D deficiency, unspecified Category: Medical Plan: Start vitamin D3 2000 IU OTC We will recheck levels in 3 months (4) Allergic rhinitis: Code(s): J30.9 - Allergic rhinitis, unspecified Category: Medical Qualifiers: Allergic rhinitis trigger: unspecified Allergic rhinitis seasonality: non-seasonal Qualified Code(s): J30.89 - Other allergic rhinitis Plan: Improved. Continue fluticasone propionate 50 mcg/actuation 2 sprays intranasal b.i.d. and Zyrtec 10 mg daily p.r.n. Limit exposure to allergens Air purifiers and dust filters Air conditioner in house, especially where sleeping (5) Elevated liver enzymes: Code(s): R74.8 - Abnormal levels of other serum enzymes Category: Medical Plan: Liver enzymes elevated. AST 45, ALT 103. The patient is taking a significant amount of Tylenol due to left groin pain. He also uses alcohol, reports that he has been cutting down Discontinue Tylenol p.r.n.. Limit alcohol/limit high fat foods/exercise/lose weight Liver panel was ordered. The patient denies abdominal pain. If liver enzymes continue to be elevated, consider doing an ultrasound of the abdomen with elastography (6) Left groin pain: Code(s): R10.32 - Left lower quadrant pain Category: Medical Plan: Patient had multiple images that showed no abnormalities in his left groin. Including ultrasounds and a CAT scan. This is most likely a muscular injury. We will add gabapentin 100 mg t.i.d. and discontinue Tylenol 975 mg q.6 hours due to elevated liver enzymes. Continue cyclobenzaprine 5 mg b.i.d. p.r.n. (7) Multiple skin tags: Code(s): L91.8 - Other hypertrophic disorders of the skin Category: Medical Plan: The patient was referred to dermatology at his previous visit (8) Smoker: Code(s): F17.200 - Nicotine dependence, unspecified, uncomplicated Category: Social Hx Plan: Encouraged smoking cessation (9) Impaired fasting glucose: Code(s): R73.01 - Impaired fasting glucose Category: Medical Plan: Fasting glucose 118 We will add an A1c that the patient follow up labs in 3 months to further evaluate Plan Patient to follow up in 3 months Orders: Orders Complete Blood Count Auto Diff 3 Months E55.9 - Vitamin D deficiency, unspecified, E78.5 - Hyperlipidemia, unspecified, F17.200 - Nicotine dependence, unspecified, uncomplicated, J30.89 - Other allergic rhinitis, R74.8 - Abnormal levels of other serum enzymes Comprehensive [place]. Panel Fast 3 Months E55.9 - Vitamin D deficiency, unspecified, E78.5 - Hyperlipidemia, unspecified, F17.200 - Nicotine dependence, unspecified, uncomplicated, J30.89 - Other allergic rhinitis, R74.8 - Abnormal levels of other serum enzymes Vitamin D 25-OH Total 3 Months E55.9 - Vitamin D deficiency, unspecified, E78.5 - Hyperlipidemia, unspecified, F17.200 - Nicotine dependence, unspecified, u ncomplicated, J30.89 - Other allergic rhinitis, R74.8 - Abnormal levels of other serum enzymes Prothrombin Time INR 3 Months E55.9 - Vitamin D deficiency, unspecified, E78.5 - Hyperlipidemia, unspecified, F17.200 - Nicotine dependence, unspecified, uncomplicated, J30.89 - Other allergic rhinitis, R74.8 - Abnormal levels of other serum enzymes Lipid Panel 3 Months E55.9 - Vitamin D deficiency, unspecified, E78.5 - Hyperlipidemia, unspecified, F17.200 - Nicotine dependence, unspecified, uncomplicated, J30.89 - Other allergic rhinitis, R74.8 - Abnormal levels of other serum enzymes UA CC w/rflx Micro + Cult 3 Months E55.9 - Vitamin D deficiency, unspecified, E78.5 - Hyperlipidemia, unspecified, F17.200 - Nicotine dependence, unspecified, uncomplicated, J30.89 - Other allergic rhinitis, R74.8 - Abnormal levels of other serum enzymes TSH reflex Free T4 3 Months E55.9 - Vitamin D deficiency, unspecified, E78.5 - Hyperlipidemia, unspecified, F17.200 - Nicotine dependence, unspecified, uncomplicated, J30.89 - Other allergic rhinitis, R74.8 - Abnormal levels of other serum enzymes Liver Panel 3 Months E55.9 - Vitamin D deficiency, unspecified, E78.5 - Hyperlipidemia, unspecified, F17.200 - Nicotine dependence, unspecified, uncomplicated, J30.89 - Other allergic rhinitis, R74.8 - Abnormal levels of other serum enzymes Ferritin 3 Months E55.9 - Vitamin D deficiency, unspecified, E78.5 - Hyperlipidemia, unspecified, F17.200 - Nicotine dependence, unspecified, uncomplicated, J30.89 - Other allergic rhinitis, R74.8 - Abnormal levels of other serum enzymes Hepatitis A,B,C Profile 3 Months E55.9 - Vitamin D deficiency, unspecified, E78.5 - Hyperlipidemia, unspecified, F17.200 - Nicotine dependence, unspecified, uncomplicated, J30.89 - Other allergic rhinitis, R74.8 - Abnormal levels of other serum enzymes Hemoglobin A1c 3 Months R73.01 - Impaired fasting glucose Medications: New gabapentin 100 mg PO TID PRN 30 caps 3RF pain
== END 2024-08-14 10:57 | disposition home or self-care (01) ==
LOC: HO.HMCH 09:29
DX: Z00.00 Encounter for general adult medical examination without abnormal findings (principal); E78.00 Pure hypercholesterolemia, unspecified; E55.9 Vitamin D deficiency, unspecified; J30.89 Other allergic rhinitis; R74.8 Abnormal levels of other serum enzymes; R10.32 Left lower quadrant pain; L91.8 Other hypertrophic disorders of the skin; F17.200 Nicotine dependence, unspecified, uncomplicated; R73.01 Impaired fasting glucose

== ENCOUNTER 2024-10-01 14:12 | Outpatient (AMB) | payer OTHER, SELFPAY ==
--- NOTE | 2024-10-01 14:19 | A.OFFVIS_ITS ---
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 States his pain has been ongoing since February of 2024. No swelling or cramping. 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 Complaints include pain over varicosities, swelling of lower extremities, cramping, fatigue, and heaviness of the lower extremities. He actually had an acute episode of swelling yesterday evening and was subsequently sent to [facility] emergency room. Upon workup he was negative for DVT. It has been affecting there daily activities including walking and working standing job where he walks nearly 20,000 steps daily.. It is noted more so in left leg. Patient denies any previous venous surgery or injections. Patient denies any history of DVT/ PE. - ultrasound performed at [facility] on 09/30/2024 was negative for DVT. Patient denies any history of phlebitis. Trial of compression includes - [id number] They now present for vascular evaluation regarding their varicose veins. [facility] Medical History Allergic rhinitis Asthma Multiple skin tags Surgical History History of surgery on lower extremity Family History Mother Heart attack Stroke Diabetes Sleep apnea Father No problems noted. Other FH: mental illness Family history of substance abuse Social History Household Members: Significant Other Housing: Apartment Alcohol intake: current Alcohol intake frequency: a few times a month Alcohol type: beer Patient Tobacco Use Status: Current everyday Tobacco user Tobacco use type: Cigarette Cigarette Packs Per Day: 0.25 Cigarettes Per Day: 5 Years Smoked: 15 e-Cigarette/Vaping Use: Currently Using service: No Current occupational status: employed Cognitive needs: No Hearing needs: No Vision needs: No Review of Systems Const Reports as per HPI ENT Reports no additional complaints Card Denies chest pain, Denies chest pain at rest and Denies chest pain with activity Resp Denies chest congestion and Denies cough GI Reports no additional complaints Musc Details: pain over varicosities, aching of lower extremities, swelling, cramping, heaviness and tiredness, itching Denies abnormal gait Skin/Breast Reports pruritus and Denies wounds Neuro Reports no additional complaints and Denies abnormal gait Psych Denies no additional complaints Physical Exam Const General: cooperative, healthy appearing and comfortable Orientation/consciousness: oriented to person, oriented to place and oriented to time Neck Carotids: no bruits Chest Chest palpation & inspection: normal inspection of the chest and normal palpation of entire chest wall Resp Effort & Inspection: normal respiratory effort and able to speak in complete sentences Cardio Other: Palpable femoral popliteal and dorsalis pedis pulses bilaterally Rate: regular rate Heart sounds: S1 normal heart sound present and S2 normal heart sound present Peripheral pulses: Peripheral pulses 2+ throughout GI Inspection: Yes normal to inspection Skin Other: +2 edema, large rope-like varicosities greater than 4 mm left thigh CEAP Classification C4 - skin color changes Ep - Etiology Primary As - superficial veins P - reflux General skin exam: dry skin Neuro General: oriented to person, oriented to place and oriented to time Extrem Right lower extremity: full ROM, normal capillary refill and edema Left lower extremity: full ROM, normal capillary refill and edema Psych Mental Status: mental status grossly normal Assessment & Plan Assessment & Plan (1) Varicose veins of left lower extremity with inflammation: Code(s): I83.12 - Varicose veins of left lower extremity with inflammation Category: Medical Plan: In short, the patient has evidence of venous insufficiency. I have discussed the pathophysiology with the patient. In addition I have provided informational material regarding venous disease to the patient. We have discussed conservative measures including compression, elevation, and exercise. I have also provided a handout regarding appropriate use of compression stockings and where to purchase good compression stockings as well. I have taken the liberty of ordering venous insufficiency testing with the patient. They will follow up with me after testing. The patient had an opportunity to ask questions regarding the treatment plan. All questions were answered. Imaging studies, laboratory studies and physical exam results were discussed and reviewed in detail. No major barriers to understanding were identified. The patient expressed understanding and agreement with the above treatment plan. The patient is aware they should contact our office by phone for worsening of the current condition or the appearance of new symptoms. Thank you for allowing me to participate in the vascular care of this patient. If you have any questions or concerns regarding the treatment for the above condition please do not hesitate to contact me. The office telephone contact is [phone]. This note is constructed using voice recognition software. While every effort has been made to ensure accuracy, room service food service attendant errors may have been included. Thank you for allowing me to participate in the care of your patient. Yours sincerely, Jero Sharpe MD, FACS, R.P.V.I. (2) Left groin pain: Code(s): R10.32 - Left lower quadrant pain Category: Medical Plan: Upon direct examination of this this is more on the lateral aspect of the left hip. It appeared to be more musculoskeletal as I did press down and was able to reproduce the pain. I did explain that this may be more orthopedic in nature and may need further evaluation. He has already been set up for this. It does not appear to be neurogenic as he has been on gabapentin for a fair amount of time with no significant improvement. Orders: Orders US venous duplex LE Today I83.12 - Varicose veins of left lower extremity with inflammation Coding Level of Care Code New Pt Level 4 (42424) Diagnoses Varicose veins of left lower extremity with inflammation I83.12 Left groin pain R10.32
== END 2024-10-01 14:49 | disposition home or self-care (01) ==
LOC: HO.HVS 14:13
PROVIDERS: Visit Provider Surgery Vascular Surgery
DX: I83.12 Varicose veins of left lower extremity with inflammation (principal); R10.32 Left lower quadrant pain
CPT/HCPCS: 99204

== ENCOUNTER 2024-11-14 07:37 | Outpatient (REF) | payer OTHER, SELFPAY ==
[2024-11-14 07:51] LABS: MANUAL DIFF FLAG NO
[2024-11-14 08:29] LABS: Hematocrit 46.9 % (42.0-52.0); Hemoglobin 16.2 g/dl (14.0-18.0); Imm Gran Abs Auto 0.03 X10*3/uL (0.00-0.03); Imm Gran Pct Auto 0.5 % (0.0-0.4); Lymphocytes Absolute Auto 1.9 X10*3/uL (1.2-4.9); Mean Corpuscular HGB Conc 34.5 g/dl (31.0-36.0); Mean Corpuscular Hemoglobin 30.0 pg (27.0-33.0); Mean Corpuscular Volume 86.9 fL (80.0-98.0); NRBC Abs Auto 0.000 X10*3/uL (0.0-0.012); NRBC Pct Auto 0.0 /100WBC (0.0-0.2); Platelet Count 259 X10*3/uL (160-400); Red Blood Count 5.40 X10*6/uL (4.60-5.80); White Blood Count 6.3 X10*3/uL (4.8-10.8)
[2024-11-14 08:30] LABS: INTERNATIONAL NORM RATIO 0.9 (0.9-1.1); Prothrombin Time 10.6 SEC (10.9-12.4)
[2024-11-14 08:37] LABS: Appearance Urine Clear; Glucose Urine UA Negative (Negative); PH 7.0 (5.0-9.0); Specific Gravity - Urine 1.015 (1.005-1.025)
[2024-11-14 08:53] LABS: Alanine Aminotransferase 180 U/L (0-40); Albumin Level 4.5 g/dL (3.5-5.0); Alkaline Phosphatase 54 U/L (39-117); Anion Gap 10 (12-20); Aspartate Amino Transferase 75 U/L (5-37); Blood Urea Nitrogen 12 mg/dL (9-16); Calcium 9.7 mg/dL (8.4-10.2); Carbon Dioxide 30 mmol/L (22-29); Chloride 106 mmol/L (96-108); Cholesterol 177 mg/dL (<200); Estimated Glomerular Filt Rate > 60; HDL Cholesterol 39 mg/dL (>40); Potassium 4.9 mmol/L (3.3-5.1); Sodium 141 mmol/L (135-145); Total Protein 6.9 g/dL (6.5-8.0); Triglycerides 75 mg/dL (<150)
[2024-11-14 09:06] LABS: HBS Num1 244.95 mIU/mL (0-7.99); HBc Num1 0.05 S/CO (0.00-0.79); HBsAGNum1 0.30 S/CO (0.00-0.99); Hepatitis A Antibody IgM 0.17 Index (0-0.79); Hepatitis B Surface Antigen Negative (Negative); ~HepC Num1 0.05 S/CO (0.00-0.79); ~Hepatitis A Antibody IgM Nonreactive (Nonreactive); ~Hepatitis B Surface Antibody REACTIVE (Nonreactive); ~Hepatitis C Antibody Nonreactive (Nonreactive)
[2024-11-14 09:10] LABS: Ferritin 321 ng/mL (20-250)
== END 2024-11-14 07:38 | disposition home or self-care (01) ==
LOC: HO.LAB 07:37
DX: Z00.00 Encounter for general adult medical examination without abnormal findings (principal); J30.89 Other allergic rhinitis; F17.200 Nicotine dependence, unspecified, uncomplicated; R74.8 Abnormal levels of other serum enzymes; E78.5 Hyperlipidemia, unspecified; E55.9 Vitamin D deficiency, unspecified; R73.01 Impaired fasting glucose; E78.00 Pure hypercholesterolemia, unspecified; R10.32 Left lower quadrant pain; R79.89 Other specified abnormal findings of blood chemistry
CPT/HCPCS: 36415; 80053; 80061; 80076; 81003; 82248; 82306; 82728; 83036; 84443; 85025; 85610; 86704; 86706; 86709; 86803; 87340

== ENCOUNTER 2024-11-14 14:58 | Outpatient (AMB) | payer OTHER, SELFPAY ==
[2024-11-14 15:13] VITALS: BP 120/62; PULSE 88; RESP 18; TEMP 36.4; O2SAT 97; BMI 25.9
--- NOTE | 2024-11-14 15:13 | MHC.PC.OV ---
Vital Signs 11/14/24 15:13 Height 6 ft 1 in Weight 196 lb 4 oz BMI 25.9 BP 120/62 Blood Pressure Location Lt brachial Position Sitting Respiration 18 Pulse 88 Pulse Source Pulse Oximeter Temp 97.5 F Temp Source Temporal Artery Scan Pulse Oximetry (%) 97 Oxygen Delivery Method Room Air Intake Visit Reasons: hld/elevated liver enzymes [employer] Required: No Accompanied by: Self / Same As Patient Allergies No Known Allergies Allergy (Verified 11/14/24 15:28) Medication List - Last Reconciled 11/14/24 by JUHI Argueta cetirizine (Zyrtec) 10 mg PO DAILY PRN gabapentin 300 mg PO BID ibuprofen 800 mg PO Q6H meloxicam 15 mg PO DAILY Tobacco use date assessed: 11/14/24 Dental Screening Dental Screen Date: 11/14/24 Did you have a dental visit in the last 12 months?: No Did you have a dental problem in the last 6 months where you did not have access to dental care?: No Was dental information given to patient?: No HPI hld/elevated liver enzymes HPI Details The patient is a 38-year-old male presenting with concerns about elevated liver enzymes and leg pain. The patient reports elevated liver enzymes and high ferritin levels, indicating hyperferritinemia, which were identified in recent lab tests. He denies alcohol consumption for two weeks recently, although he has a history of significant alcohol intake, which he has reduced significantly over the past week. The patient has been advised to continue reducing alcohol intake to prevent further liver damage, as there is a suspicion of liver disease, possibly fatty liver disease due to hypercholesterolemia. The patient has been experiencing leg pain for approximately nine months, which began in February or March. The pain is exacerbated by prolonged standing and walking at work, where he is unable to take frequent breaks. He has been using meloxicam and gabapentin to manage the pain, but the relief is temporary, and he experiences significant discomfort by mid-day. Reports that he has been taking 800 mg of ibuprofen around this time. Explained to the patient that he can not take the ibuprofen while he is taking meloxicam. Per patient, the pain is unbearable around this time. He has to work and has been struggling to stand around this time. The patient has a labral tear shown on MRI, which may require further evaluation to determine the need for surgical intervention. He is scheduled for a cortisone injection on December 06 to manage inflammation and pain. The patient also reports varicose veins, with a recent ultrasound performed to assess the condition. He notes changes in skin color on his foot, which may be related to the varicose veins. Additionally, the patient has been diagnosed with vitamin D deficiency, for which he has been taking supplements. Recent lab results show improvement, but levels remain slightly below the desired range. Note: The patient has a left labrum tear on MRI, he is being seeing at [facility], with plans for steriods inject. The patient is taking meloxicam 15mg daily and gabapentin in the mornings. Mid-day at work the patient is having extremely high pain and has been taking 800mg of ibuprofen. Explained to the patient that he cannot take the ibuprofen with the Meloxicam. The patient has a follow up with orthopedics on november 26 and . Will start the patient 30 tramadol PRN bid. Explained to the patient that this is only temporary. [facility] Medical History Allergic rhinitis Asthma Multiple skin tags Surgical History History of surgery on lower extremity Family History Mother Heart attack Stroke Diabetes Sleep apnea Father No problems noted. Other FH: mental illness Family history of substance abuse Social History Household Members: Significant Other Housing: Apartment Alcohol intake: current Alcohol intake frequency: a few times a month Alcohol type: beer Patient Tobacco Use Status: Current everyday Tobacco user Tobacco use type: Cigarette Cigarette Packs Per Day: 0.25 Cigarettes Per Day: 5 Years Smoked: 15 e-Cigarette/Vaping Use: Currently Using service: No Current occupational status: employed Cognitive needs: No Hearing needs: No Vision needs: No Questionnaire Thrive Questionnaire Date Thrive assessed: 06/30/24 I am a: Patient What is your living situation today?: I have a steady place to live Within the past 12 months, did the food you bought not last and you didn't have the money to get more?: Never true Within the past 12 months, did you worry whether your food would run out before you got money to buy more?: Never true Do you have trouble paying for medicines?: No Do you have trouble getting transportation to medical appointments?: No Do you have trouble paying your heating and electricity bill?: No Do you have trouble taking care of your child, family member or friend?: No Do you have trouble with day-to-day activities such as bathing, preparing meals, shopping, managing finances, etc.?: No Are you currently unemployed and looking for a job?: No Are you interested in more education?: No Please select the resources that you would like help with: None Currently or been in a relationship where the following occur: No concerns reported THRIVE Score: 0 NEETU-7 AMB Questionnaire NEETU-7 Date NEETU - 7 assessed: 07/02/24 Source: Developed by Drs. Garfield Cristina, Quiana Bazan, Salbador Sesay and colleagues, with an educational diya from [employer]. Review of Systems Const Denies headache(s) Eyes Denies loss of vision ENT Denies vertigo, Denies dizziness, Denies headache(s) and Denies sore throat Card Denies chest pain, Reports claudication (varicose veins), Denies leg edema and Denies lightheadedness Resp Denies cough, Denies hemoptysis and Denies wheezing GI Denies abdominal pain, Denies melena, Denies constipation, Denies diarrhea and Denies vomiting Denies dysuria, Denies urinary frequency and Denies urinary urgency Musc Reports arthralgias (left groin ), Denies joint swelling, Denies numbness and Denies tingling Neuro Denies Abnormal speech present, Denies behavioral changes, Denies vertigo, Denies dizziness, Denies headache(s), Denies loss of vision, Denies memory loss, Denies numbness and Denies tingling Psych Denies anxiety, Denies behavioral changes, Denies depression, Denies memory loss and Denies panic attacks Burke/Lymph Denies easy bleeding and Denies easy bruising Aller/Immun Denies wheezing Physical exam (Primary Care) Vital Signs: Last Vital Signs Temp 97.5 F 11/14/24 15:13 Pulse 88 11/14/24 15:13 Resp 18 11/14/24 15:13 BP 120/62 11/14/24 15:13 Pulse Ox 97 11/14/24 15:13 Oxygen Delivery Method Room Air 11/14/24 15:13 BMI result Body Mass Index 25.9 Tobacco/Smoking Status: Tobacco use Status Tobacco use date assessed 11/14/24 11/14/24 15:24 Patient Tobacco Use Status Current everyday Tobacco 11/14/24 15:24 Tobacco use type Cigarette 11/14/24 15:24 e-Cigarette/Vaping Use Currently Using 11/14/24 15:24 Thrive Assessment: Date of Thrive Assessment Date Thrive assessed 06/30/24 11/14/24 15:24 Currently or been in a relationship where the following occur: No concerns reported Const General: healthy appearing, alert and awake Nutritional Appearance: well nourished Orientation/consciousness: oriented to person, oriented to place and oriented to time HENMT Ears: hearing grossly normal bilaterally General nose exam: Normal external nose present Eyes Conjunctivae: conjunctivae normal Sclerae: sclerae normal Pupils: Equal, round and reactive pupils present Neck Neck: Yes no lymphadenopathy and Yes no JVD Thyroid: Thyroid normal Carotids: no bruits Resp Effort & Inspection: normal respiratory effort and not tachypneic Auscultation: no crackles, no rales, no rhonchi and no wheezes Cardio Rate: regular rate Rhythm: regular rhythm Heart sounds: no murmurs and normal S1 and S2 GI Palpation (GI): Soft to palpation, nontender, no hepatomegaly and no splenomegaly Auscultation: normal bowel sounds General: Yes no CVA tenderness Back/Spine/Pelvis Back: no CVA tenderness Thoracic/Lumbar Spine: No lumbar spinal tenderness Skin General skin exam: no rashes or lesions noted and dry skin Neuro General: oriented to person, oriented to place and oriented to time Cranial nerves: Yes Equal, round and reactive pupils present Speech: No Abnormal speech present Gait exam (Neuro): Normal gait present Motor exam (neuro): no tremor noted Extrem Right upper extremity: full ROM Left upper extremity: full ROM Right lower extremity: full ROM; no edema Left lower extremity: full ROM and hip/thigh (inner groin) Details: tenderness; no swelling; no edema Psych Mental Status: mental status grossly normal Speech and movement: Normal speech and movement present Affect: normal affect Attitude: cooperative Thought process: Normal thought process present Results Reviewed Results Reviewed: Laboratory Tests 11/14/24 11/14/24 07:45 07:50 WBC 6.3 RBC 5.40 Hgb 16.2 Hct 46.9 MCV 86.9 MCH 30.0 MCHC 34.5 RDW 11.9 Plt Count 259 Sodium 141 Potassium 4.9 Chloride 106 Carbon Dioxide 30 H Anion Gap 10 L BUN 12 Creatinine 0.99 Estimated GFR > 60 Fasting Glucose 117 H Estimat Average Glucose 120 Hemoglobin A1c % 5.8 Calcium 9.7 D Ferritin 321 H Total Bilirubin 0.8 Direct Bilirubin 0.3 AST 75 H ALT 180 H Alkaline Phosphatase 54 Total Protein 6.9 Albumin 4.5 Triglycerides 75 Cholesterol 177 LDL Cholesterol, Calc 123 H HDL Cholesterol 39 L 25-OH Vitamin D Total 29.3 L TSH 0.98 Urine Color Yellow Urine Appearance Clear Urine pH 7.0 Ur Specific [place] 1.015 Urine Protein Negative Urine Glucose (UA) Negative Urine Ketones Negative Urine Blood Negative Urine Nitrite Negative Ur Leukocyte Esterase Negative Coding Level of Care Code Est Pt Level 4 (64416) Diagnoses Pure hypercholesterolemia E78.00 Hyperlipidemia type: pure hypercholesterolemia Vitamin D deficiency E55.9 Non-seasonal allergic rhinitis, unspecified trigger Allergic rhinitis seasonality: non-seasonal Allergic rhinitis trigger: unspecified Elevated liver enzymes R74.8 Left groin pain R10.32 Smoker F17.200 Impaired fasting glucose R73.01 Elevated ferritin R79.89 Time Spent (min) 38 Assessment & Plan Assessment & Plan (1) HLD (hyperlipidemia): Code(s): E78.5 - Hyperlipidemia, unspecified Category: Medical Qualifiers: Hyperlipidemia type: pure hypercholesterolemia Qualified Code(s): E78.00 - Pure hypercholesterolemia, unspecified Plan: Triglycerides 114, total cholesterol 172, LDL 110 and HDL 40 Discussed lifestyle modifications including dietary changes and physical activity We will recheck lipid panel in 3 months (2) Vitamin D deficiency: Code(s): E55.9 - Vitamin D deficiency, unspecified Category: Medical Plan: Start vitamin D3 2000 IU OTC We will recheck levels in 3 months (3) Allergic rhinitis: Code(s): J30.9 - Allergic rhinitis, unspecified Category: Medical Qualifiers: Allergic rhinitis seasonality: non-seasonal Allergic rhinitis trigger: unspecified Qualified Code(s): J - Other allergic rhinitis Plan: Improved. Continue fluticasone propionate 50 mcg/actuation 2 sprays intranasal b.i.d. and Zyrtec 10 mg daily p.r.n. Limit exposure to allergens Air purifiers and dust filters Air conditioner in house, especially where sleeping (4) Elevated liver enzymes: Code(s): R74.8 - Abnormal levels of other serum enzymes Category: Medical Plan: Triglycerides 75, total cholesterol 177, LDL 123, HDL 39 There is a suspicion of liver disease, possibly fatty liver disease, due to elevated liver enzymes and hypercholesterolemia. The patient is advised to reduce alcohol intake and undergo further diagnostic testing, including an abdominal US with elastrography (5) Left groin pain: Code(s): R10.32 - Left lower quadrant pain Category: Medical Plan: The patient has a suspected labral tear, which may require surgical intervention. He is scheduled for a cortisone injection to manage inflammation and pain, with further evaluation planned to determine the need for surgery. Continue gabapentin 300 mg BID, Meloxicam, will add tramadol 50 mg bid PRN until the patient procedure is carried out. (6) Smoker: Code(s): F17.200 - Nicotine dependence, unspecified, uncomplicated Category: Social Hx Plan: Encouraged smoking cessation (7) Impaired fasting glucose: Code(s): R73.01 - Impaired fasting glucose Category: Medical Plan: Fasting glucose 117, hemoglobin 5.8% We will add an A1c that the patient follow up labs in 3 months to further evaluate (8) Elevated ferritin: Code(s): R79.89 - Other specified abnormal findings of blood chemistry Category: Medical Plan: The patient presents with hyperferritinemia, which may be related to liver dysfunction. Further evaluation of liver function is planned to determine the underlying cause. Plan Patient to follow up in 3 months Orders: Orders Comprehensive [place]. Panel Fast 3 Months E55.9 - Vitamin D deficiency, unspecified, E78.00 - Pure hypercholesterolemia, unspecified, F17.200 - Nicotine dependence, unspecified, uncomplicated, J30.89 - Other allergic rhinitis, R73.01 - Impaired fasting glucose, R74.8 - Abnormal levels of other serum enzymes, R79.89 - Other specified abnormal findings of blood chemistry TSH reflex Free T4 3 Months E55.9 - Vitamin D deficiency, unspecified, E78.00 - Pure hypercholesterolemia, unspecified, F17.200 - Nicotine dependence, unspecified, uncomplicated, J30.89 - Other allergic rhinitis, R73.01 - Impaired fasting glucose, R74.8 - Abnormal levels of other serum enzymes, R79.89 - Other specified abnormal findings of blood chemistry Lipid Panel 3 Months E55.9 - Vitamin D deficiency, unspecified, E78.00 - Pure hypercholesterolemia, unspecified, F17.200 - Nicotine dependence, unspecified, uncomplicated, J30.89 - Other allergic rhinitis, R73.01 - Impaired fasting glucose, R74.8 - Abnormal levels of other serum enzymes, R79.89 - Other specified abnormal findings of blood chemistry Ferritin 3 Months E55.9 - Vitamin D deficiency, unspecified, E78.00 - Pure hypercholesterolemia, unspecified, F17.200 - Nicotine dependence, unspecified, uncomplicated, J30.89 - Other allergic rhinitis, R73.01 - Impaired fasting glucose, R74.8 - Abnormal levels of other serum enzymes, R79.89 - Other specified abnormal findings of blood chemistry US abdomen preciado w elastography 11/15/24 R74.8 - Abnormal levels of other serum enzymes, R79.89 - Other specified abnormal findings of blood chemistry Hepatitis A,B,C Profile 11/14/24 R74.8 - Abnormal levels of other serum enzymes, R79.89 - Other specified abnormal findings of blood chemistry Vitamin D 25-OH Total 3 Months E55.9 - Vitamin D deficiency, unspecified, E78.00 - Pure hypercholesterolemia, unspecified, F17.200 - Nicotine dependence, unspecified, uncomplicated, J30.89 - Other allergic rhinitis, R73.01 - Impaired fasting glucose, R74.8 - Abnormal levels of other serum enzymes, R79.89 - Other specified abnormal findings of blood chemistry UA CC w/rflx Micro + Cult 3 Months E55.9 - Vitamin D deficiency, unspecified, E78.00 - Pure hypercholesterolemia, unspecified, F17.200 - Nicotine dependence, unspecified, uncomplicated, J30.89 - Other allergic rhinitis, R73.01 - Impaired fasting glucose, R74.8 - Abnormal levels of other serum enzymes, R79.89 - Other specified abnormal findings of blood chemistry Medications: New tramadol 50 mg PO BID PRN 30 tabs 0RF pain
== END 2024-11-14 16:25 | disposition home or self-care (01) ==
LOC: HO.HMCH 14:59
DX: E78.00 Pure hypercholesterolemia, unspecified (principal); E55.9 Vitamin D deficiency, unspecified; J30.89 Other allergic rhinitis; R74.8 Abnormal levels of other serum enzymes; R10.32 Left lower quadrant pain; F17.200 Nicotine dependence, unspecified, uncomplicated; R73.01 Impaired fasting glucose; R79.89 Other specified abnormal findings of blood chemistry

== ENCOUNTER 2024-11-15 13:10 | Outpatient (REF) | payer OTHER, SELFPAY ==
--- NOTE | ~2024-11-15 | US_ITS ---
EXAMINATION: US LOWER EXTREMITY VENOUS (REFLUX EXAM), BILATERAL CLINICAL INFORMATION: I 83.12. Varices. COMPARISON: None. TECHNIQUE: Color flow triplex imaging and compression Doppler was performed to evaluate both the deep and the superficial systems bilaterally. To evaluate the superficial system, the examination was performed in the upright position. Color-flow Doppler ultrasound and compression ultrasound were utilized. In addition, maneuvers were utilized to demonstrate reflux. FINDINGS: 1. DEEP VENOUS ULTRASOUND OF THE RIGHT LOWER EXTREMITY: Common Femoral Vein: Compressible, normal respiratory variation and augmented flow. Femoral Vein: Compressible, normal color flow and augmentation. Popliteal Vein: Compressible, normal augmentation. Deep Reflux: There is no evidence of reflux in the deep system in either the common femoral vein, superficial femoral or the popliteal vein. There is no evidence of a Garcia's cyst. 2. SUPERFICIAL ULTRASOUND WITH DOPPLER OF RIGHT LOWER EXTREMITY: GREAT SAPHENOUS VEIN: Saphenofemoral Junction: 0.6 cm; Reflux: 0 ms Proximal Thigh: 0.3 cm; Reflux: 0 ms Mid Thigh: 0.3 cm; Reflux: 0 ms Distal Thigh: 0.2 cm; Reflux: 0 ms At Knee: 0.1 cm; Reflux: 0 ms Proximal Calf: 0.2 cm; Reflux: 0 ms Mid Calf: 0.1 cm; Reflux: 0 ms Distal Calf: 0.2 cm; Reflux: 0 ms DUPLICATED MEDIAL GREAT SAPHENOUS VEIN: Diameter: None imaged Reflux: NA DUPLICATED LATERAL GREAT SAPHENOUS VEIN: Diameter: 0.5 cm. Reflux: NA SMALL SAPHENOUS VEIN: Saphenopopliteal Junction: 0.2 cm; Reflux: 0 ms Proximal: 0.1 cm; Reflux: 0 ms Distal: 0.1 cm; Reflux: 0 ms Questionable at duplication in the midsegment versus varices. Diameter in the mid calf and ankle, 0.2 cm. VEIN OF GIACOMINI: Size: 0.2 cm. Reflux: NA PERFORATORS: Location: Small saphenous vein, mid segment. Great saphenous vein mid calf. Size: 0.1 and 0.2 cm, respectively. Reflux: NA VARICOSITIES: Location: None imaged. Size: NA Reflux: NA 3. DEEP VENOUS ULTRASOUND OF THE LEFT LOWER EXTREMITY: Common Femoral Vein: Compressible, normal respiratory variation and augmented flow. Femoral Vein: Compressible, normal color flow and augmentation. Popliteal Vein: Compressible, normal augmentation. Deep Reflux: There is no evidence of reflux in the deep system in either the common femoral vein, superficial femoral or the popliteal vein. There is no evidence of a Garcia's cyst. 4. SUPERFICIAL ULTRASOUND WITH DOPPLER OF LEFT LOWER EXTREMITY: GREAT SAPHENOUS VEIN: Saphenofemoral Junction: 0.7 cm; Reflux: 0 ms Proximal Thigh: 0.4 cm; Reflux: 0 ms Mid Thigh: 0.2 cm; Reflux: 0 ms Distal Thigh: 0.4 cm; Reflux: 2944 ms At Knee: 0.3 cm; Reflux: 2700 ms Proximal Calf: 0.2 cm; Reflux: 0 ms Mid Calf: 0.2 cm; Reflux: 552 ms Distal Calf: 0.3 cm; Reflux: 0 ms Duplicated great saphenous vein with diameter 0.2 cm in the mid calf and 0.1 cm in the ankle. No reflux. DUPLICATED MEDIAL GREAT SAPHENOUS VEIN: Diameter: None imaged Reflux: NA DUPLICATED LATERAL GREAT SAPHENOUS VEIN: Diameter: 0.5 and 0.4 cm at the junction and mid thigh respectively. Reflux: 2876 ms at the saphenous junction and 2964 ms in the mid thigh. SMALL SAPHENOUS VEIN: Saphenopopliteal Junction: 0.4 cm; Reflux: 0 ms Proximal: 0.2 cm; Reflux: 0 ms Distal: 0.3 cm; Reflux: 0 ms VEIN OF GIACOMINI: Size: 0.1 cm. Reflux: NA PERFORATORS: Location: Small saphenous vein, distal segment and great saphenous vein proximal calf. Size: 0.3 cm. Reflux: NA VARICOSITIES: Location: Accessory saphenous vein, lateral mid segment. Size: 0.6 cm. Reflux: 2796 ms. US/US venous insuf bilat IMPRESSION: Right: No venous insufficiency. Left: Venous insufficiency, great saphenous vein from above the knee to the mid calf. Venous insufficiency, Accessory lateral saphenous vein at junction and mid thigh.. Varices with reflux at the accessory saphenous vein, lateral mid segment. Electronically signed by: Farooq Robertson MD 11/15/2024 03:12 PM EDT
== END 2024-11-15 13:11 | disposition home or self-care (01) ==
LOC: HO.US 13:10
PROVIDERS: Visit Provider Surgery Vascular Surgery
DX: I83.12 Varicose veins of left lower extremity with inflammation (principal)
CPT/HCPCS: 93970

== ENCOUNTER → 2024-11-15 13:25 | Outpatient (BNV) | payer OTHER, SELFPAY | PROVIDERS: Visit Provider Radiology Diagnostic Radiology | DX: I87.2 Venous insufficiency (chronic) (peripheral) (principal) | CPT/HCPCS: 93970 ==

== ENCOUNTER 2024-11-23 08:17 | Outpatient (REF) | payer OTHER, SELFPAY ==
[2024-11-23 10:06] LABS: HBS Num1 254.96 mIU/mL (0-7.99); HBc Num1 0.05 S/CO (0.00-0.79); HBsAGNum1 0.36 S/CO (0.00-0.99); Hepatitis A Antibody IgM 0.25 Index (0-0.79); Hepatitis B Surface Antigen Negative (Negative); ~HepC Num1 0.06 S/CO (0.00-0.79); ~Hepatitis A Antibody IgM Nonreactive (Nonreactive); ~Hepatitis B Surface Antibody REACTIVE (Nonreactive); ~Hepatitis C Antibody Nonreactive (Nonreactive)
== END 2024-11-23 08:18 | disposition home or self-care (01) ==
LOC: HO.LAB 08:17
DX: Z00.00 Encounter for general adult medical examination without abnormal findings (principal); R74.8 Abnormal levels of other serum enzymes; R79.89 Other specified abnormal findings of blood chemistry
CPT/HCPCS: 36415; 82947; 86704; 86706; 86709; 86803; 87340

== ENCOUNTER 2024-12-10 15:37 | Outpatient (AMB) | payer OTHER, SELFPAY ==
[2024-12-10 15:45] VITALS: BP 148/92; PULSE 102; TEMP 36.7; O2SAT 97; BMI 25.4
--- NOTE | 2024-12-10 15:45 | A.OFFPC_ITS ---
Vital Signs 12/10/24 15:45 Height 6 ft 1 in Weight 192 lb 8 oz BMI 25.4 BP 148/92 H Blood Pressure Location Lt brachial Position Sitting Pulse 102 H Pulse Source Pulse Oximeter Temp 98.0 F Temp Source Temporal Artery Scan Pulse Oximetry (%) 97 Oxygen Delivery Method Room Air Intake Visit Reasons: Severe Pain on hip Allergies No Known Allergies Allergy (Verified 12/10/24 15:49) Medication List - Last Reconciled 12/10/24 by Vince Stokes MD cetirizine (Zyrtec) 10 mg PO DAILY PRN gabapentin 300 mg PO BID ibuprofen 800 mg PO Q6H meloxicam 15 mg PO DAILY tramadol 50 mg PO BID PRN Tobacco use date assessed: 12/10/24 Dental Screening Dental Screen Date: 12/10/24 Did you have a dental visit in the last 12 months?: Yes Did you have a dental problem in the last 6 months where you did not have access to dental care?: No Was dental information given to patient?: Patient has dentist HPI HPI Comments History of Present Illness Details The patient is a 38-year-old male presenting for evaluation of worsening left hip pain. He has a known diagnosis of a left hip labral tear, c onfirmed by an MRI on November 08. He received a cortisone injection in the left hip last and reports his pain has been worse since the procedure. The pain is described as throbbing, even while sitting, and is significantly impacting his ability to work, sleep, and eat. The severity of the pain has caused him to miss work, and he has applied for short-term disability. He intends to pursue surgery and is awaiting a call from a specialist in [place]. Past medical history is notable for elevated liver enzymes, with a last known level of 180, for which he has an ultrasound scheduled next month. Due to this liver issue, he has been avoiding Tylenol and ibuprofen. He quit drinking alcohol on November 02. [facility] Medical History Allergic rhinitis Asthma Multiple skin tags Surgical History History of surgery on lower extremity Family History Mother Heart attack Stroke Diabetes Sleep apnea Father No problems noted. Other FH: mental illness Family history of substance abuse Social History Household Members: Significant Other Housing: Apartment Alcohol intake: current Alcohol intake frequency: a few times a month Alcohol type: beer Patient Tobacco Use Status: Current everyday Tobacco user Tobacco use type: Cigarette Cigarette Packs Per Day: 0.25 Cigarettes Per Day: 5 Years Smoked: 15 e-Cigarette/Vaping Use: Currently Using service: No Current occupational status: employed Cognitive needs: No Hearing needs: No Vision needs: No Questionnaire PHQ-9 Over the last 2 weeks, how often have you been bothered by any of the following problems? 1. Little interest or pleasure in doing things: not at all 2. Feeling down, depressed, or hopeless: not at all 3. Trouble falling or staying asleep, or sleeping too much: not at all 4. Feeling tired or having little energy: several days 5. Poor appetite or overeating: several days 6. Feeling bad about yourself - or that you are a failure or have let yourself or your family down: not at all 7. Trouble concentrating on things, such as reading the newspaper or watching television: not at all 8. Moving or speaking so slowly that other people could have noticed. Or the opposite - being so fidgety or restless that you have been moving around a lot more than usual: not at all 9. Thoughts that you would be better off or of hurting yourself in some way: not at all Total score: 2 Depression Screening Interpretation: Negative Depression Screening Done: Yes Source: Developed by Drs. Garfield Cristina, Quiana Bazan, Salbador Sesay and colleagues, with an educational diya from [employer]. Thrive Questionnaire Date Thrive assessed: 06/30/24 I am a: Patient What is your living situation today?: I have a steady place to live Within the past 12 months, did the food you bought not last and you didn't have the money to get more?: Never true Within the past 12 months, did you worry whether your food would run out before you got money to buy more?: Never true Do you have trouble paying for medicines?: No Do you have trouble getting transportation to medical appointments?: No Do you have trouble paying your heating and electricity bill?: No Do you have trouble taking care of your child, family member or friend?: No Do you have trouble with day-to-day activities such as bathing, preparing meals, shopping, managing finances, etc.?: No Are you currently unemployed and looking for a job?: No Are you interested in more education?: No Please select the resources that you would like help with: None Currently or been in a relationship where the following occur: No concerns reported THRIVE Score: 0 AUDIT C Alcohol Use Questionnaire (AUDIT-C) 1. How often do you have a drink containing alcohol?: Never 3. How often do you have six or more drinks on one occasion?: Never Total Score: 0 NEETU-7 AMB Questionnaire NEETU-7 Date NEETU - 7 assessed: 07/02/24 Feeling nervous, anxious, or on edge: 0 = Not at all Not being able to stop or control worryin = Not at all Worrying too much about different things: 0 = Not at all Trouble relaxin = Not at all Being so restless that it is hard to sit still: 0 = Not at all Becoming easily annoyed or irritable: 0 = Not at all Feeling afraid as if something awful might happen: 0 = Not at all Total NEETU-7 score (0-4 normal; 5-9 mild; 10-14 moderate; 15-21 severe): 0 Source: Developed by Drs. Garfield Cristina, Quiana Bazan, Salbador Sesay and colleagues, with an educational diya from [employer]. Physical exam (Primary Care) Vital Signs: Last Vital Signs Temp 98.0 F 12/10/24 15:45 Pulse 102 H 12/10/24 15:45 BP 148/92 H 12/10/24 15:45 Pulse Ox 97 12/10/24 15:45 Oxygen Delivery Method Room Air 12/10/24 15:45 BMI result Body Mass Index 25.4 Tobacco/Smoking Status: Tobacco use Status Tobacco use date assessed 12/10/24 12/10/24 15:50 Patient Tobacco Use Status Current everyday Tobacco 12/10/24 15:50 Tobacco use type Cigarette 12/10/24 15:50 e-Cigarette/Vaping Use Currently Using 12/10/24 15:50 PHQ-9: PHQ-9 Score PHQ-9: Total score 2 12/10/24 15:50 Depression Screening Interpretation: Negative Thrive Assessment: Date of Thrive Assessment Date Thrive assessed 06/30/24 12/10/24 15:50 Currently or been in a relationship where the following occur: No concerns reported Const Other: Pertinent findings are in BOLD GENERAL APPEARANCE NAD, activity normal for age, well developed/ well nourished, no cyanosis, pallor, or diaphoresis. EYES lids/conjunctiva normal. EARS/NOSE/THROAT Mucous membranes moist, nares normal, lips/teeth normal uvula midline without oral pharyngeal erythema, exudate or swelling TMs normal bilaterally. No lymphangitis/lymphedema. HEAD/NECK normocephalic atraumatic, no facial trauma, neck is supple. RESPIRATORY respiratory effort normal, speaks in full sentences, no tripod position, no accessory muscle use. Lungs clear to auscultation without rhonchi, wheezes, rales CARDIAC Regular rate and rhythm, no edema. ABDOMINAL Soft, ND/NT. No evidence of fluid wave. No pulsatile masses on exam, rebound tenderness, Chairez sign or pain over Mcburney's point. MUSCLES/EXTREMITIES No abnormal range of motion, no swelling. Limping while walking. SKIN Warm, pink and dry. No rashes, dermatoses, petechiae or lesions. NEUROLOGICAL Speech is clear and appropriate. Normal level of consciousness. Gait and coordination are normal. 5/5 strength in all extremities. PSYCH Normal mood and affect. Judgement/competence is appropriate Coding Level of Care Code Est Pt Level 3 (91138) Diagnoses Left hip pain M25.552 Elevated liver enzymes R74.8 Assessment & Plan Assessment & Plan (1) Left hip pain: Comment: Labral tear on OSH MRI. Code(s): M25.552 - Pain in left hip Category: Medical Plan: - The patient presents with severe left hip pain that has worsened after a recen t cortisone injection. - A referral will be placed for Pain Management for further evaluation. - A referral will be placed for an Orthopedic surgeon to discuss definitive treatment options, including surgery. - For pain management, the patient was advised he can take Tylenol 650 mg every 8 hours, not to exceed 2 g per day, in addition to a small dose of ibuprofen. - The patient reported that meloxicam causes significant drowsiness and prefers not to take it. - Advised patient that the Tylenol that was prescribed in the past was for short term pain control and not a permanant solution. - Advised patient that he needs his hip to be fixed in case he wants to have pain improvement. (2) Elevated liver enzymes: Code(s): R74.8 - Abnormal levels of other serum enzymes Category: Medical Plan: - The patient has a history of elevated liver enzymes, which have improved since he stopped consuming alcohol. - The patient was reassured that taking Tylenol in small doses (less than 2 grams per day) is safe, as his condition is not severe cirrhosis. Plan I discussed with the patient the plan to address his severe left hip pain from a diagnosed labral tear. I explained that I will refer him to both a bait painter and an orthopedic surgeon to explore further options, including other injections or surgery, as this is necessary to fix the underlying problem. We addressed his concerns regarding medication use with his history of elevated liver enzymes, and I reassured him that small doses of Tylenol and ibuprofen are safe to use for pain control until he can see the specialists. I acknowledged his significant functional impairment, his application for short-term disability, and the need to obtain his prior imaging records for continuity of care. Orders: Referrals Pain Management Referral M25.552 - Pain in left hip Orthopedics Referral M25.552 - Pain in left hip, S73.199A - Other sprain of unspecified hip, initial encounter Medications: New ibuprofen 200 mg PO Q8H PRN 20 tabs 0RF pain acetaminophen ER (Tylenol Arthritis Pain) 650 mg PO Q8H PRN 20 tabs 0RF pain
== END 2024-12-10 16:47 | disposition home or self-care (01) ==
LOC: HO.HMCH 15:38
PROVIDERS: Visit Provider Internal Medicine
DX: M25.552 Pain in left hip (principal); R74.8 Abnormal levels of other serum enzymes

== ENCOUNTER 2024-12-31 15:06 | Outpatient (AMB) | payer OTHER, SELFPAY ==
--- NOTE | 2024-12-31 15:08 | MHC.OFFVIS ---
Vital Signs 12/31/24 15:09 Height 6 ft 1 in Weight 192 lb BMI 25.3 Intake Visit Reasons: follow up [facility] 11/15/24 Intake Note: follow up [facility] 11/15/24, Left LE is worse than Right LE. 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 He reports left leg pain attributed to a labral tear in his hip. The patient denies noticing any swelling, though some is noted on exam. The patient's hip pain is significant, rated 4-5/10 on a daily basis and sometimes higher, which prompted him to go on short-term disability. He received a cortisone injection on December 05, which was ineffective. He is scheduled for a surgical consultation in [place] for the labral tear. [facility] Medical History Allergic rhinitis Asthma Multiple skin tags Surgical History History of surgery on lower extremity Family History Mother Heart attack Stroke Diabetes Sleep apnea Father No problems noted. Other FH: mental illness Family history of substance abuse Social History Household Members: Significant Other Housing: Apartment Alcohol intake: current Alcohol intake frequency: a few times a month Alcohol type: beer Patient Tobacco Use Status: Current everyday Tobacco user Tobacco use type: Cigarette Cigarette Packs Per Day: 0.25 Cigarettes Per Day: 5 Years Smoked: 15 e-Cigarette/Vaping Use: Currently Using service: No Current occupational status: employed Cognitive needs: No Hearing needs: No Vision needs: No Review of Systems Const All systems reviewed & are unremarkable except as noted in HPI and below Reports no additional complaints ENT Reports Normal hearing present Card Denies chest pain, Denies chest pain at rest, Denies chest pain with activity and Denies pedal edema Resp Denies cough GI Denies abdominal pain Musc Denies abnormal gait, Denies muscle cramps and Denies radiating pain into limb Skin/Breast Denies skin ulcer and Denies wounds Neuro Reports Normal hearing present and Denies abnormal gait Psych Reports no additional complaints Physical Exam Vital Signs: BMI result Body Mass Index 25.3 Const General: cooperative, healthy appearing and comfortable Orientation/consciousness: oriented to person, oriented to place and oriented to time HEENT Head: Yes normal to inspection Neck Neck: Yes normal visual inspection Carotids: no bruits Chest Chest palpation & inspection: normal inspection of the chest Resp Effort & Inspection: normal respiratory effort and able to speak in complete sentences Auscultation: clear to auscultation bilaterally, no crackles, no rales, no rhonchi and no wheezes Cardio Rate: regular rate Rhythm: regular rhythm Heart sounds: S1 normal heart sound present and S2 normal heart sound present Bruits: no carotid bruits Peripheral pulses: Peripheral pulses 2+ throughout GI Inspection: Yes normal to inspection Skin Wounds: no wounds Hair: normal Neuro General: oriented to person, oriented to place and oriented to time Cranial nerves: Yes CN's II-XII intact bilaterally and Yes Normal hearing present Cognition (Neuro): normal cognition Motor exam (neuro): 5/5 motor strength present throughout Extrem Other: venous exam: +1 edema General: No clubbing, No cyanosis and Yes edema Psych Appearance: grossly normal Mental Status: mental status grossly normal Speech and movement: Normal speech and movement present Results Reviewed Results Reviewed: Brief summary of venous insufficiency testing is as follows: right great saphenous vein: negative right small saphenous vein: negative right accessory vein: none present left great saphenous vein: Focally positive left knee left small saphenous vein: negative left accessory vein: none present Please note there is no evidence of any venous aneurysms or significant tortuosity Assessment & Plan Assessment & Plan (1) Varicose veins of left lower extremity with inflammation: Code(s): I83.12 - Varicose veins of left lower extremity with inflammation Category: Medical Plan: In short patient has minimal left lower extremity venous reflux. At the current time I do not think this is his major issue. Is bigger issue is his left hip labral tear. I would like that fixed and resolved. I do not think his venous disease needs any intervention at the current time. Would continue with conservative measures including compression elevation and exercise. We did discuss the exercise aspect as he is quite limited by his orthopedic issues. He will follow up with us on an as-needed basis. Thank you for allowing us to assist in his care. Plan Patient was informed and verbally consented to the use of an ambient scribe for clinic note documentation during this visit. Patient Instructions: - Use compression stockings to help with your leg veins. - When you are resting, such as watching TV or reading, elevate your legs. - Continue with your plan to see the doctors in [place] about getting surgery for your hip. - Call us to make an appointment in 1-2 years, or sooner if your leg swelling gets worse after your hip has been treated. Coding Level of Care Code Est Pt Level 4 (81530) Diagnoses Varicose veins of left lower extremity with inflammation I83.12
[2024-12-31 15:09] VITALS: BMI 25.3
== END 2024-12-31 15:26 | disposition home or self-care (01) ==
LOC: HO.HVS 15:07
PROVIDERS: Visit Provider Surgery Vascular Surgery
DX: I83.12 Varicose veins of left lower extremity with inflammation (principal)
CPT/HCPCS: 99214

== ENCOUNTER 2025-01-23 08:45 | Outpatient (REF) | payer OTHER, SELFPAY ==
--- NOTE | ~2025-01-23 | US_ITS ---
EXAMINATION: US ABDOMEN LIMITED WITH LIVER ELASTOGRAPHY CLINICAL INFORMATION: Abnormal LFTs. COMPARISON: No prior available. TECHNIQUE: Real-time imaging of the abdominal viscera. Noninvasive ultrasound liver fibrosis assessment is performed using Stpehany ElastPQ point quantification shear wave elastography (2D-SWE) with a C5-2 MHz transducer. Multiple elastography samples are obtained. FINDINGS: As per technologist note, somewhat limited exam due to liver motion from respiration despite attempts at breath-hold. PANCREAS: The visualized pancreatic head and body are normal in appearance. The remainder of the pancreas is obscured from visualization by the overlying bowel gas. LIVER: The liver demonstrates normal size, contour and diffusely increased echogenicity. No focal suspicious lesion or intrahepatic biliary duct dilatation. The right lobe measures 15.0 cm in length. The left lobe measures 10.2 cm in length. Portal flow is towards the liver (hepatopetal). Shear wave liver elastography median stiffness is 1.34 m/s (reference: normal median stiffness is 1.3 m/s or less). IQR/median stiffness to assess sampling precision is 0.28 (reference: good quality data set is IQR/median stiffness of 0.15 or less). This represents a suboptimal data set. GALLBLADDER: The gallbladder is physiologically distended without evidence of stones, sludge, polyps, wall thickening or pericholecystic fluid. COMMON BILE DUCT: Normal in caliber measuring 0.3 cm in diameter. RIGHT KIDNEY: No hydronephrosis. No renal calculi or focal parenchymal lesions. The kidney measures 10.1 cm in maximum dimension. FREE FLUID: None. US/US abdomen preciado w elastography IMPRESSION: 1. Diffusely increased hepatic echogenicity without suspicious hepatic lesion or biliary dilatation. This most likely represents steatosis. 2. Liver elastography: Although measurements appear to rule out compensated advanced chronic liver disease, there is statistical variability of the sampling which decreases accuracy. 3. Remainder of the examination is normal. REFERENCE: Society of Radiologists in Ultrasound Liver Stiffness Thresholds (2019): LIVER STIFFNESS THRESHOLDS: *Liver Stiffness equal or less than 1.3 m/s: High probability of being normal. *Liver Stiffness less than 1.7 m/s: In the absence of other known clinical signs, rules out compensated advanced chronic liver disease. *Liver Stiffness 1.7-2.1 m/s: Suggestive of compensated advanced chronic liver disease but need further test for confirmation. *Liver Stiffness over 2.1 m/s: Rules in compensated advanced chronic liver disease. *Liver Stiffness over 2.4 m/s: Suggestive of clinically significant portal hypertension. QUALITY OF DATA SET: *IQR/Median value equal or less than 0.15 implies a quality data set. *IQR/Median value over 0.15 implies a poor quality data set. SIGNIFICANT CHANGE FROM PRIOR EXAM: Significant change if liver stiffness measurement is 10% or greater from prior exam. OTHER CONSIDERATIONS: The stage of liver fibrosis may be overestimated in the setting of acute hepatitis, liver inflammation, elevated liver function tests, hepatic vascular congestion, obstructive cholestasis, non-fasting state, and infiltrative diseases such as amyloidosis and lymphoma. In some patients with NAFLD, the liver stiffness thresholds for compensated advanced chronic liver disease may be lower. In causes other than viral hepatitis and NAFLD, liver stiffness thresholds are not well established. Electronically signed by: Atul Bowen MD 01/23/2025 10:17 AM [facility]
== END 2025-01-23 08:46 | disposition home or self-care (01) ==
LOC: HO.US 08:45
DX: R74.8 Abnormal levels of other serum enzymes (principal); R79.89 Other specified abnormal findings of blood chemistry
CPT/HCPCS: 76705; 76981

== ENCOUNTER → 2025-01-23 08:46 | Outpatient (BNV) | payer OTHER, SELFPAY | PROVIDERS: Visit Provider Radiology Diagnostic Radiology | DX: R74.8 Abnormal levels of other serum enzymes (principal); R79.89 Other specified abnormal findings of blood chemistry | CPT/HCPCS: 76705 ==